=== PATIENT | male | born 1940 | race Caucasian/White ===

== ENCOUNTER 2016-06-06 09:45 | Emergency (ER) | payer MEDICARE ==
--- NOTE | 2016-06-06 11:00 | Emergency Department Record ---
History of Present Illness - General Chief Complaint: Dizziness Stated Complaint: DIZZINESS/HIGH BP/FAST HEART RATE Time Seen by Provider: 06/06/16 10:57 Source: Patient, Family Mode of Arrival: Ambulatory Limitations: No limitations - History of Present Illness Initial Comments: 75 yo male presents feeling lightheaded and dizzy for about a week. 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 He was taken off his Sotolol and started on Amiodarone, lasix, Carvedilol , Potassium. He has been on these medications for about a week. He has felt lightheaded, dizzy. Several days ago he passed out briefly. He noted at home that his HR has been over a one hundred and BP under a one hundred on several readings. MD Complaint: Dizziness, Lightheadedness Onset/Timin -: Week(s) Timing: Gradual onset History of Same: No History of Trauma: No Severity: Mild Improves With: Nothing Worsens With: Nothing Associated Symptoms: Denies other symptoms - [place] Coma Scale Eye Response: (4) Open spontaneously Motor Response: (6) Obeys commands Verbal Response: (5) Oriented [place] Total: 15 - Related Data Home Medications Medication Instructions Recorded Confirmed Last Taken Latanoprost 0.005% Opth Lisa 2.5 ml OP DAILY 10/25/15 06/06/16 11/25/15 [Xalatan] Midodrine HCl 2.5 mg PO BID 10/25/15 06/06/16 11/25/15 Multivit-Min/FA/Lycopene/Lut 1 each PO DAILY 10/25/15 06/06/16 11/25/15 [Centrum Silver Tablet] Nitroglycerin [Nitrostat] 0.4 mg SL ASDIR 10/25/15 06/06/16 11/25/15 Ranitidine HCl [Zantac] 150 mg PO BID 10/25/15 06/06/16 11/25/15 Rivaroxaban [Xarelto] 20 mg PO DAILY 10/25/15 06/06/16 11/25/15 [place] 450 mg PO BID 10/25/15 06/06/16 11/25/15 Simvastatin [Zocor] 10 mg PO DAILY 10/25/15 06/06/16 11/25/15 Temazepam 15 mg PO ASDIR PRN 10/25/15 06/06/16 11/24/15 Amiodarone HCl [Amiodarone HCl] 200 mg PO DAILY 06/06/16 06/06/16 Unknown Carvedilol [Carvedilol] 6.25 mg PO BID 06/06/16 06/06/16 Unknown Furosemide [Furosemide] 20 mg PO DAILY 06/06/16 06/06/16 Unknown Potassium Chloride [Klor-Con] 10 meq PO DAILY 06/06/16 06/06/16 Unknown Allergies Allergy/AdvReac Type Severity Reaction Status Date / Time dutasteride [From Avodart] Allergy SWELLING Verified 11/25/15 14:24 (GENERAL) lisinopril AdvReac DIZZINESS Verified 11/25/15 14:24 Travel Screening - Travel/Exposure Within Last 30 Days Have you traveled within the last 30 days?: No Review of Systems Constitutional: Reports: Weakness. Denies: Chills, Fever, Malaise Eyes: Denies: Eye discharge ENT: Denies: Congestion, Throat pain Respiratory: Denies: Cough, Dyspnea, Hemoptysis, Stridor, Wheezes Cardiovascular: Reports: Palpitations, Syncope. Denies: Chest pain Endocrine: Denies: Fatigue Gastrointestinal: Denies: Abdominal pain, Diarrhea, Nausea, Vomiting Genitourinary: Denies: Dysuria, Hematuria, Urgency Musculoskeletal: Denies: Arthralgia, Back pain, Joint swelling, Myalgia, Neck pain Skin: Denies: Bruising, Change in color Neurological: Denies: Headache, Numbness Psychiatric: Denies: Anxiety Hematological/Lymphatic: Denies: Blood Clots, Easy bleeding, Easy bruising, Swollen glands Past Medical History - SOCIAL HISTORY Smoking Status: Never smoker Alcohol Use: None Drug Use: None - RESPIRATORY Hx Respiratory Disorders: Yes Hx Sleep Apnea: Yes - CARDIOVASCULAR Hx Cardio Disorders: Yes Hx Abnormal EKG: Yes Hx Cardiac Cath: Yes Hx Chest Pain: Yes Hx CHF: Yes Hx Deep Vein Thrombosis: Yes Hx Edema: Yes Hx Heart Attack: Yes Hx Irregular Heartbeat: Yes Hx Pacemaker/Defib: Yes - NEURO Hx Neuro Disorders: No - GI Hx GI Disorders: Yes Hx of Polyps: Yes - Hx Genitourinary Disorders: Yes Hx Prostate Problems: Yes - ENDOCRINE Hx Endocrine Disorders: No - MUSCULOSKELETAL Hx Musculoskeletal Disorders: Yes Hx Arthritis: Yes - PSYCH Hx Psych Problems: No - HEMATOLOGY/ONCOLOGY Hx Hematology/Oncology Disorders: Yes Hx Cancer: Yes (skin) Family Medical History Any Significant Family History?: Yes Hx Cancer: Grandparents Hx HTN: Father, Mother, Grandparents *Stroke Comment: uncles Physical Exam - General General Appearance: Alert, Oriented x3, Cooperative, No acute distress Limitations: No limitations - Head Head exam: Normal inspection - Eye Eye exam: Normal appearance, PERRL. negative: Conjunctival injection - ENT ENT exam: Normal exam, Mucous membranes moist, Normal external ear exam, Normal orophraynx Ear exam: Normal external inspection. negative: External canal tenderness Nasal Exam: Normal inspection. negative: Discharge, Sinus tenderness Mouth exam: Normal external inspection, Tongue normal Teeth exam: Normal inspection. negative: Dental caries Throat exam: Normal inspection. negative: Tonsillar erythema, Tonsillar exudate - Neck Neck exam: Normal inspection, Full ROM. negative: Tenderness - Respiratory Respiratory exam: Normal lung sounds bilaterally. negative: Respiratory distress - Cardiovascular Cardiovascular Exam: Normal rhythm, Tachycardia Peripheral Pulses: 2+: Radial (R), Radial (L) - GI/Abdominal GI/Abdominal exam: Soft - Rectal Rectal exam: Deferred - exam: Deferred - Extremities Extremities exam: Normal inspection, Full ROM, Normal capillary refill. negative: Tenderness - Back Back exam: Reports: Normal inspection, Full ROM. Denies: Muscle spasm, Rash noted, Tenderness - Neurological Neurological exam: Alert, CN II-XII intact, Normal gait, Oriented X3 - Psychiatric Psychiatric exam: Normal affect, Normal mood - Skin Skin exam: Dry, Intact, Normal color, Warm Course Vital Signs 06/06/16 10:17 Temperature 97.5 F L Pulse Rate [ 109 H Pulse Ox Probe] Respiratory 14 Rate Blood Pressure 109/83 [Left Arm] Pulse Ox 96 - Reevaluation(s) Reevaluation #1: EKG 1008 sinus tachycardia, rate 108, PVC, RBBB, [place] rightward, ST changes CW bbbb. QTC 483 Comparison is from01/27/16 rate then was 70 06/06/16 10:58 Reevaluation #2: No acute changes on the BMP, Magnesium K is 4.2, Mg is 2.1 06/06/16 12:27 Reevaluation #3: The Troponin is negative 06/06/16 12:32 Reevaluation #4: I SW Dr Mensah We thoroughly reviewed his prior history and results We discussed his vitals including HR Dr Mensah recommends STOPPING the Lasix and Carvedilol He is to take the Amio 200mg BID His is to call the office prior to any changes and to report his symptoms update 06/06/16 12:48 06/06/16 12:52 06/06/16 13:04 Medical Decision Making - Lab Data Result diagrams: 06/06/16 10:50 06/06/16 10:50 Disposition Disposition: Discharge Clinical Impression: Palpitations Syncope Qualifiers: Syncope type: unspecified Qualified Code(s): R55 - Syncope and collapse Disposition: Home, Self-Care Condition: (1) Good Instructions: Dizziness (ED) Additional Instructions: Call Dr Mensah to be seen next week STOP your Lasix and Potassium STOP your Carvedilol Change your Amiodarone to 200mg twice daily Return immediately if you are worse, dizzy, pass out, pain or any concerns. Forms: Patient Portal Access Time of Disposition: 13:07
[2016-06-06 11:29] LABS: BASO % 0.3 % (0-6); EOS % 2.1 % (0-6); GRAN % 66.7 % (47-80); HEMATOCRIT 48.5 % (42.0-52.0); HEMOGLOBIN 15.8 gm/dl (14.0-18.0); MEAN CELL VOLUME 98.8 fl (81-97); MEAN CORPUSCULAR HEMOGLOBIN 32.2 pg (27-33); MEAN CORPUSCULAR HGB CONC 32.6 g/dl (32-36); MEAN PLATELET VOLUME 10.3 fl (7.4-10.4); MONO % 12.9 % (0-9); PLATELET COUNT 138 K/uL (130-400); RED BLOOD COUNT 4.91 M/uL (4.40-5.70); RED CELL DISTRIBUTION WIDTH 14.1 % (11.5-14.5); WHITE BLOOD COUNT W/O DIFF 6.3 K/uL (4.2-12.2)
[2016-06-06 11:45] LABS: INR 1.52; PARTIAL THROMBOPLASTIN TIME 42.5 SECONDS (24.5-39.1); PROTHROMBIN TIME (PATIENT) 17.2 SECONDS (9.5-12.1)
[2016-06-06 12:23] LABS: EST GLOMERULAR FILTRATION RATE > 60 ml/min
[2016-06-06 14:53] LABS: CKMB 1.1 ug/L (0-6)
[2016-06-06 14:55] LABS: TROPONIN I < 0.030 ng/mL (0.00-0.034)
[2016-06-06 14:56] LABS: GLUCOSE,RANDOM 108 mg/dL (70-110)
[2016-06-06 14:57] LABS: BLOOD UREA NITROGEN 22 mg/dL (9-20)
== END 2016-06-06 13:34 | disposition home or self-care (01) ==
LOC: ER 09:45
DX: R00.2 Palpitations (principal); R55 Syncope and collapse; I50.9 Heart failure, unspecified; I25.2 Old myocardial infarction
CPT/HCPCS: 80048; 82553; 83735; 84484; 85025; 85610; 85730; 93005; 93010; 99284

== ENCOUNTER 2016-06-22 11:54 | Day surgery (SDC) | payer MEDICARE ==
[2016-06-22] MEDS ORDERED: LIDOCAINE 2% MDV (20MG/ML) 20ML VIAL IV ONE (14:00)
[2016-06-22] MEDS ORDERED: PROPOFOL 10 MG/ML VIAL IV ONE (14:00)
--- NOTE | 2016-06-25 07:26 | Operative Note ---
DATE: 06/22/2016. PROCEDURE: Cardioversion. OPERATING PHYSICIAN: Domenica Mensah M.D. INDICATIONS: Atypical atrial flutter. DESCRIPTION OF PROCEDURE: Mr. Myles was brought into the Cardioversion Room in a fasting state. The defibrillation pads were applied in the anteroposterior position. Anesthesia was administered, and then a synchronized cardioversion was performed with 50 joules of biphasic energy. This was successful on the first attempt. IMPRESSION: Successful electrical cardioversion with 50 joules of biphasic energy. Domenica Mensah M.D. Date Time JOB NUMBER: [id number] MTDD
== END 2016-06-22 14:30 | disposition home or self-care (01) ==
LOC: SUR 11:54
PROVIDERS: ATTEND Internal Medicine
DX: I48.91 Unspecified atrial fibrillation (principal); Z79.01 Long term (current) use of anticoagulants; E78.00 Pure hypercholesterolemia, unspecified; I25.810 Atherosclerosis of coronary artery bypass graft(s) without angina pectoris
CPT/HCPCS: 93005

== ENCOUNTER 2016-06-23 09:39 | Emergency (ER) | payer MEDICARE ==
[2016-06-23] MEDS ORDERED: 0.9 % SODIUM CHLORIDE 1000ML 1,000 ML IV PRN (09:46)
--- NOTE | 2016-06-23 10:05 | Emergency Department Record ---
History of Present Illness - General Chief Complaint: Dizziness Stated Complaint: DIZZY/LIGHTHEADED Time Seen by Provider: 06/23/16 09:46 Source: Patient, RN notes reviewed Mode of Arrival: Ambulatory - History of Present Illness Initial Comments: patient state dizzy and lightheaded since his cardioversion yesterday at [facility] by Dr. Baron Mensah. Patient states the pictures are moving on the [place] and when he stands up he is dizzy and lightheaded. No chest pain and heart rate is 70 to 80. Patient has a pacer defibrillator and an EF of 30 % and history of CHF , CABG times 4 2003, Atrial fib 2011. Patient also nauseated MD Complaint: Dizziness Onset/Timin -: Days(s) Timing: Sudden onset Description: Lightheadedness, Nausea, Other History of Same: No History of Trauma: No Severity: Moderate Improves With: Nothing Worsens With: Nothing Associated Symptoms: Syncope, Weakness - [place] Coma Scale Eye Response: (4) Open spontaneously Motor Response: (6) Obeys commands Verbal Response: (5) Oriented [place] Total: 15 - Related Data Home Medications Medication Instructions Recorded Confirmed Last Taken Latanoprost 0.005% Opth Lisa 2.5 ml OP DAILY 10/25/15 06/23/16 06/22/16 [Xalatan] Midodrine HCl 2.5 mg PO BID 10/25/15 06/23/16 06/23/16 Multivit-Min/FA/Lycopene/Lut 1 each PO DAILY 10/25/15 06/23/16 06/22/16 [Centrum Silver Tablet] Nitroglycerin [Nitrostat] 0.4 mg SL ASDIR 10/25/15 06/23/16 06/22/16 Ranitidine HCl [Zantac] 150 mg PO BID 10/25/15 06/23/16 06/23/16 Rivaroxaban [Xarelto] 20 mg PO DAILY 10/25/15 06/23/16 06/22/16 Saw [place] 450 mg PO BID 10/25/15 06/23/16 06/23/16 Simvastatin [Zocor] 10 mg PO DAILY 10/25/15 06/23/16 06/22/16 Temazepam 15 mg PO ASDIR PRN 10/25/15 06/23/16 06/22/16 Amiodarone HCl [Amiodarone HCl] 200 mg PO DAILY 06/06/16 06/23/16 06/22/16 Carvedilol [Carvedilol] 6.25 mg PO BID 06/06/16 06/23/16 06/23/16 Furosemide [Furosemide] 20 mg PO DAILY 06/06/16 06/23/16 06/22/16 Potassium Chloride [Klor-Con] 10 meq PO DAILY 06/06/16 06/23/16 06/22/16 Previous Rx's Medication Instructions Recorded Amoxicillin [Amoxil] 500 mg PO TID #30 tab 06/23/16 Meclizine HCl [Antivert] 12.5 mg PO BID #20 tab 06/23/16 Allergies Allergy/AdvReac Type Severity Reaction Status Date / Time dutasteride [From Avodart] Allergy Intermediate SWELLING Verified 06/23/16 09:49 (GENERAL) zolpidem AdvReac Severe ALTERED Verified 06/23/16 09:49 MENTAL STATUS lisinopril AdvReac Intermediate DIZZINESS Verified 06/23/16 09:49 Travel Screening - Travel/Exposure Within Last 30 Days Have you traveled within the last 30 days?: No Review of Systems Reviewed: No additional complaints except as noted below Constitutional: Reports: As per HPI. Denies: Chills, Fever, Malaise, Night sweats, Weakness, Weight change Eyes: Reports: As per HPI. Denies: Eye discharge, Eye pain, Photophobia, Vision change ENT: Reports: As per HPI. Denies: Congestion, Dental pain, Ear pain, Epistaxis , Hearing loss, Throat pain Respiratory: Reports: As per HPI. Denies: Cough, Dyspnea, Hemoptysis, Stridor, Wheezes Cardiovascular: Reports: As per HPI. Denies: Arrhythmia, Chest pain, Dyspnea on exertion, Edema, Murmurs, Orthopnea, Palpitations, Paroxysmal nocturnal dyspnea, Rheumatic Fever, Syncope Endocrine: Reports: As per HPI. Denies: Fatigue, Heat or cold intolerance, Polydipsia, Polyuria Gastrointestinal: Reports: As per HPI. Denies: Abdominal pain, Constipation, Diarrhea, Hematemesis, Hematochezia, Melena, Nausea, Vomiting Genitourinary: Reports: As per HPI. Denies: Dysuria, Frequency, Hematuria, Incontinence, Retention, Testicular pain, Testicular mass, Urgency Musculoskeletal: Reports: As per HPI. Denies: Arthralgia, Back pain, Gout, Joint swelling, Myalgia, Neck pain Skin: Reports: As per HPI. Denies: Bruising, Change in color, Change in hair/ nails, Lesions, Pruritus, Rash Neurological: Reports: As per HPI. Denies: Abnormal gait, Confusion, Headache, Numbness, Paresthesias, Seizure, Tingling, Tremors, Vertigo, Weakness Psychiatric: Reports: As per HPI. Denies: Anxiety, Auditory hallucinations, Depression, Homicidal thoughts, Suicidal thoughts, Visual hallucinations Hematological/Lymphatic: Reports: As per HPI. Denies: Anemia, Blood Clots, Easy bleeding, Easy bruising, Swollen glands Past Medical History - SOCIAL HISTORY Smoking Status: Never smoker Alcohol Use: None Drug Use: None - RESPIRATORY Hx Respiratory Disorders: Yes Hx Pneumonia: Yes (not recent) Hx Sleep Apnea: Yes Hx of CPAP: No ("I couldn't wear it") - CARDIOVASCULAR Hx Cardio Disorders: Yes Hx Abnormal EKG: Yes (A fib) Hx Cardiac Cath: Yes (4 x) Hx Chest Pain: Yes ([place] 2002) Hx CHF: Yes (2003, 2008) Hx Edema: Yes (left leg pitting) Hx Heart Attack: Yes (2002) Hx Hypotension: Yes Hx Irregular Heartbeat: Yes Hx Pacemaker/Defib: Yes Hx Coronary Stent: Yes (2) - NEURO Hx Neuro Disorders: Yes Hx Dizziness: Yes (recently went to ED-also has had in past) Hx Headaches: Yes (all the time) - GI Hx GI Disorders: Yes Hx Nausea/Vomiting: Yes ("off & on") Hx of Polyps: Yes - Hx Genitourinary Disorders: Yes Hx Bladder Problem: Yes (urgency) Hx Prostate Problems: Yes (enlarged) - ENDOCRINE Hx Endocrine Disorders: No - MUSCULOSKELETAL Hx Musculoskeletal Disorders: Yes Hx Arthritis: Yes (RA) - PSYCH Hx Psych Problems: Yes Hx Behavior Problems: Yes (gets night terrors) Comment:: said "don't touch him if night terrors,he'll swing at you" - HEMATOLOGY/ONCOLOGY Hx Hematology/Oncology Disorders: Yes Hx Bruising: Yes (on blood thinner-xarelto) Hx Cancer: Yes (skin-base of neck,nose x 3,chest & low back) Family Medical History Any Significant Family History?: Yes Hx Cancer: Grandparents Hx HTN: Father, Mother, Grandparents *Stroke Comment: uncles Course Vital Signs 06/23/16 09:43 Temperature 98.1 F Pulse Rate 69 Respiratory 20 Rate Blood Pressure 142/88 Pulse Ox 97 - Reevaluation(s) Reevaluation #1: discussed case with Dr. Baron Mensah and will give him some fluids 06/23/16 12:17 Medical Decision Making - Data Complexity MDM Data: Labs Ordered and/or Reviewed, X-Ray Ordered and/or Reviewed ( cardiomegaly, left pleural effusion, atelectasis or pneumonitis, head CT neg) - Lab Data Result diagrams: 06/23/16 10:08 06/23/16 10:06 Disposition Clinical Impression: Bronchitis CHF (congestive heart failure) Qualifiers: Congestive heart failure type: systolic Congestive heart failure chronicity: chronic Qualified Code(s): I50.22 - Chronic systolic (congestive) heart failure Disposition: Home, Self-Care Condition: (1) Good Instructions: Acute Bronchitis (ED), Benign Paroxysmal Positional Vertigo (ED) Additional Instructions: followm up with family in 5 days Prescriptions: Amoxicillin [Amoxil] 500 mg PO TID #30 tab Meclizine HCl [Antivert] 12.5 mg PO BID #20 tab Forms: Patient Portal Access Time of Disposition: 12:24
[2016-06-23 10:17] LABS: HEMATOCRIT 47.8 % (42.0-52.0); HEMOGLOBIN 15.5 gm/dl (14.0-18.0); MEAN CELL VOLUME 99.4 fl (81-97); MEAN CORPUSCULAR HEMOGLOBIN 32.2 pg (27-33); MEAN CORPUSCULAR HGB CONC 32.4 g/dl (32-36); MEAN PLATELET VOLUME 10.6 fl (7.4-10.4); PLATELET COUNT 141 K/uL (130-400); RED BLOOD COUNT 4.81 M/uL (4.40-5.70); RED CELL DISTRIBUTION WIDTH 14.2 % (11.5-14.5); WHITE BLOOD COUNT W/O DIFF 4.9 K/uL (4.2-12.2)
[2016-06-23 10:29] LABS: ANION GAP 7.9 (7-16); BLOOD UREA NITROGEN 15 mg/dL (9-20); CARBON DIOXIDE 26.1 mmol/L (22-30); CREATININE 0.9 mg/dL (0.66-1.25); EST GLOMERULAR FILTRATION RATE > 60 ml/min; GLUCOSE,RANDOM 97 mg/dL (70-110)
[2016-06-23 10:32] LABS: PLATELET ESTIMATE NORMAL (NORMAL)
[2016-06-23 10:41] LABS: CKMB 0.7 ug/L (0-6)
[2016-06-23 10:42] LABS: TROPONIN I < 0.012 ng/mL (0.00-0.034)
[2016-06-23 11:28] LABS: URINE APPEARANCE CLEAR; URINE BILIRUBIN NEGATIVE (NEGATIVE); URINE BLOOD MODERATE (NEGATIVE); URINE COLOR YELLOW; URINE GLUCOSE (UA) NEGATIVE (NEGATIVE); URINE KETONE NEGATIVE (NEGATIVE); URINE LEUKOCYTE ESTERASE NEGATIVE (NEGATIVE); URINE NITRITE NEGATIVE (NEGATIVE); URINE PROTEIN NEGATIVE (NEGATIVE); URINE UROBILINOGEN 0.2 E.U./dL (0.20 - 1.00)
[2016-06-23 11:37] LABS: URINE BACTERIA NONE SEEN; URINE EPITHELIAL CELLS NONE SEEN (FEW); URINE WBC NONE SEEN (0-2/hpf)
[2016-06-23] MEDS ORDERED: CEFTRIAXONE SODIUM 1 GM in 0.9 % SODIUM CHLORIDE 100ML 100 ML IVPB ONE (11:46)
[2016-06-23] MEDS ORDERED: AZITHROMYCIN 500 MG TABLET PO ONE (11:46)
--- NOTE | 2016-06-25 09:28 | CT SCAN REPORT ---
EXAM: HEAD CT WITHOUT CONTRAST HISTORY: TRANSIENT ALTERATION OF AWARENESS, DIZZINESS, NAUSEA, WEAKNESS FOR TWENTY-FOUR HOURS. TECHNIQUE: Contiguous axial images from the cerebral convexities to the foramen magnum were obtained without contrast. Comparison: None. Hand dominance: Right. FINDINGS: Mild generalized atrophy of the brain. No acute intracranial hemorrhage, mass effect, or midline shift. Mild to moderate decreased attenuation in the subcortical and periventricular white matter of the cerebral hemispheres. No CT evidence of large acute territorial infarct. The ventricles , basal cisterns, and sulci are within normal limits. Moderate mucosal thickening in the maxillary sinuses. Also there is mucosal thickening in the ethmoid air cells and frontal sinuses. The osseous structures and soft tissues are unremarkable. IMPRESSION: 1. NO ACUTE INTRACRANIAL PROCESS. 2. GENERALIZED ATROPHY OF THE BRAIN WITH MILD TO MODERATE CHRONIC SMALL VESSEL ISCHEMIC CHANGE. 3. MUCOSAL THICKENING IN THE FRONTAL SINUSES, ETHMOID AIR CELLS, AND MAXILLARY SINUSES CONSISTENT WITH CHRONIC SINUSITIS. JOB NUMBER: [id number] MTDD
--- NOTE | 2016-06-25 09:37 | RADIOLOGY REPORT ---
EXAM: CHEST, TWO VIEWS HISTORY: ACUTE NONPRODUCTIVE COUGH, DIFFICULTY BREATHING, SHORTNESS OF BREATH, HISTORY OF PACEMAKER. TECHNIQUE: Two views of the chest were obtained. Comparison: None available. FINDINGS: Sternotomy wires are present. Left AICD is present. Pleural thickening lower left lateral chest wall consistent with layering pleural effusion. There may be mild left basilar air space disease. The right lung is clear. The cardiac silhouette is mildly enlarged. The diaphragm is unremarkable. Osteopenia. There is no overt pulmonary edema. IMPRESSION: LAYERING LEFT PLEURAL EFFUSION. QUESTIONABLE MINOR LEFT BASILAR AIR SPACE DISEASE COULD REFLECT ATELECTASIS OR PNEUMONITIS. JOB NUMBER: [id number] [facility]
== END 2016-06-23 12:51 | disposition home or self-care (01) ==
LOC: ER 09:39
DX: J20.9 Acute bronchitis, unspecified (principal); R42 Dizziness and giddiness; R11.0 Nausea; I50.22 Chronic systolic (congestive) heart failure; I48.91 Unspecified atrial fibrillation; I25.2 Old myocardial infarction; Z95.810 Presence of automatic (implantable) cardiac defibrillator; Z79.01 Long term (current) use of anticoagulants; Z95.1 Presence of aortocoronary bypass graft
CPT/HCPCS: 70450; 71020; 80048; 81001; 82553; 84484; 85027; 85730; 93005; 93010; 96361; 96365; 99284

== ENCOUNTER 2017-01-20 08:20 | Day surgery (SDC) | payer MEDICARE ==
[~2017-01-20 08:20] MED LIST: CIPROFLOXACIN HCL 0.0015 GM, PHENYLEPHRINE HCL 0.05 GM, KETOROLAC TROMETHAMINE 0.000625 GM MC ONE
[2017-01-20] MEDS ORDERED: PROPOFOL 10 MG/ML VIAL IV ONE (12:53)
[2017-01-20] MEDS ORDERED: LIDOCAINE 2% MDV (20MG/ML) 20ML VIAL IV ONE ×2 (12:53→14:00)
[2017-01-20] MEDS ORDERED: NEOMYCIN/POLY./DEXAM OPTH OINT OPTH ONE (14:00)
[2017-01-20] MEDS ORDERED: TETRACAINE HCL 0.5% 15 ML OPTH BTL OPTH ONE (14:00)
[2017-01-20] MEDS ORDERED: EPINEPHRINE 1 MG/ML AMPUL SQ ONE (14:00)
--- NOTE | 2017-01-21 07:48 | OP NOTE CHAMES ---
DATE OF PROCEDURE: 01/20/2017. PREOPERATIVE DIAGNOSIS: Nuclear sclerotic cataract, left eye. POSTOPERATIVE DIAGNOSIS: Nuclear sclerotic cataract, left eye. OPERATION: Phacoemulsification of cataractous lens with implantation of intraocular lens. LENS IMPLANT USED: [place] Model PCB00 + 22l.0 diopters. COMPLICATIONS: None. PROCEDURE IN DETAIL: Following a retrobulbar and facial block, the patient was prepped and draped in the usual fashion for eye surgery. A lid speculum was placed in the left eye after which a 2.4 mm tunnel wound was placed at the temporal limbus and dissected into clear cornea. A paracentesis was placed at 2 oclock hours to the left and right of the initial incision and the chamber deepened with Viscoelastic. The keratome was then used to enter the anterior chamber after which the continuous circular capsulorrhexis was accomplished without difficulty using a bent needle and a Utrata forceps. Hydrodissection and hydrodelineation of the lens was performed after which the nucleus of the lens was removed using the Phaco handpiece in the [id number] technique. The residual cortical material was irrigated and aspirated from the eye after which the bag and chamber were re-examined. The bag was re-inflated with Viscoelastic and the intraocular lens injected into the capsular bag where it centered well. The Viscoelastic was then copiously irrigated and aspirated from the eye after which the temporal tunnel wound and paracentesis were hydrated and the wounds were examined. They were noted to be watertight. The lid speculum was removed from the eye and the eye patched and shielded. The patient was transferred to the recovery room in satisfactory condition and given an appointment to be reexamined in the clinic later today or as directed by Dr. Andersen. Kyler Andersen M.D. Date & Time JOB NUMBER: [id number] MTDD
== END 2017-01-20 10:45 | disposition home or self-care (01) ==
LOC: SUR 08:20
PROVIDERS: ATTEND Ophthalmology
DX: H25.12 Age-related nuclear cataract, left eye (principal); I48.91 Unspecified atrial fibrillation; Z79.01 Long term (current) use of anticoagulants; I25.810 Atherosclerosis of coronary artery bypass graft(s) without angina pectoris; Z95.810 Presence of automatic (implantable) cardiac defibrillator
CPT/HCPCS: J0171

== ENCOUNTER 2017-02-03 07:32 | Day surgery (SDC) | payer MEDICARE ==
[2017-02-03] MEDS ORDERED: LIDOCAINE 2% MDV (20MG/ML) 20ML VIAL IV ONE ×2 (07:33)
[2017-02-03] MEDS ORDERED: NEOMYCIN/POLY./DEXAM OPTH OINT OPTH ONE (07:33)
[2017-02-03] MEDS ORDERED: TETRACAINE HCL 0.5% 15 ML OPTH BTL OPTH ONE (07:33)
[2017-02-03] MEDS ORDERED: EPINEPHRINE 1 MG/ML AMPUL SQ ONE (07:33)
[2017-02-03] MEDS ORDERED: PROPOFOL 10 MG/ML VIAL IV ONE (07:33)
[2017-02-03] MEDS ORDERED: CIPROFLOXACIN HCL 0.0015 GM, PHENYLEPHRINE HCL 0.05 GM, KETOROLAC TROMETHAMINE 0.000625 GM MC ONE ×5 (11:30)
--- NOTE | 2017-02-03 14:28 | Operative Note ---
DATE OF PROCEDURE: 02/03/17. PREOPERATIVE DIAGNOSIS: Nuclear sclerotic cataract, right eye. POSTOPERATIVE DIAGNOSIS: Nuclear sclerotic cataract, right eye. OPERATION: Phacoemulsification of cataractous lens with implantation of intraocular lens. LENS IMPLANT USED: [place] Model PCB00 + 22.5 diopters. COMPLICATIONS: None. PROCEDURE IN DETAIL: Following a retrobulbar and facial block, the patient was prepped and draped in the usual fashion for eye surgery. A lid speculum was placed in the right eye after which a 2.4 mm tunnel wound was placed at the temporal limbus and dissected into clear cornea. A paracentesis was placed at 2 o'clock hours to the left and right of the initial incision and the chamber deepened with Viscoelastic. The keratome was then used to enter the anterior chamber after which the continuous circular capsulorrhexis was accomplished without difficulty using a bent needle and a Utrata forceps. Hydrodissection and hydrodelineation of the lens was performed after which the nucleus of the lens was removed using the Phaco handpiece in the [id number] technique. The residual cortical material was irrigated and aspirated from the eye after which the bag and chamber were re-examined. The bag was re-inflated with Viscoelastic and the intraocular lens injected into the capsular bag where it centered well. The Viscoelastic was then copiously irrigated and aspirated from the eye after which the temporal tunnel wound and paracentesis were hydrated and the wounds were examined. They were noted to be watertight. The lid speculum was removed from the eye and the eye patched and shielded. The patient was transferred to the recovery room in satisfactory condition and given an appointment to be reexamined in the clinic later today or as directed by Dr. Andersen. JOB NUMBER: [id number] [facility]
== END 2017-02-03 10:35 | disposition home or self-care (01) ==
LOC: SUR 07:32
PROVIDERS: ATTEND Ophthalmology
DX: H25.11 Age-related nuclear cataract, right eye (principal); I51.9 Heart disease, unspecified; Z79.01 Long term (current) use of anticoagulants; Z79.899 Other long term (current) drug therapy; E78.00 Pure hypercholesterolemia, unspecified; H40.9 Unspecified glaucoma
CPT/HCPCS: J0171

== ENCOUNTER 2017-07-18 08:36 | Observation (INO) | payer MEDICARE ==
--- NOTE | 2017-07-18 08:53 | Emergency Department Record ---
History of Present Illness - General Chief Complaint: Dizziness Stated Complaint: DIZZINESS/CARROL Time Seen by Provider: 07/18/17 08:41 Source: Patient Mode of Arrival: Ambulatory Limitations: No limitations - History of Present Illness Initial Comments: 76 yo male presents with 2 weeks of not feeling well. He states he is feeling dizzy with walking over the last two weeks. He is improved at rest but is dizzy with walking around. No vision changes, focal weakness, no confusion. He has also felt short of breath. No significant cough. No chest pain. He has had increased leg swelling. He has a history of CAD, CABG, Pacemaker. He has a history of CHF. His PCP is Dr Montes. Envelope Folding Machine Adjuster is Dr Mensah. the patient reports he has not been on his Lasix for about one year. MD Complaint: Dizziness, Other (Shortness of breath) -: Week(s) (2) Timing: Gradual onset Description: Difficulty walking History of Same: Yes History of Trauma: No Severity: Moderate Improves With: Remaining still, Rest Worsens With: Movement, Other (Walking) Associated Symptoms: Shortness of breath - Ramandeep Coma Scale Eye Response: (4) Open spontaneously Motor Response: (6) Obeys commands Verbal Response: (5) Oriented Ramandeep Total: 15 - Symptoms of Stroke Symptoms of stroke: Dizziness - Related Data Allergies Allergy/AdvReac Type Severity Reaction Status Date / Time dutasteride [From Avodart] Allergy Intermediate SWELLING Verified 07/18/17 08:45 (GENERAL) zolpidem AdvReac Severe ALTERED Verified 07/18/17 08:45 MENTAL STATUS lisinopril AdvReac Intermediate DIZZINESS Verified 07/18/17 08:45 Review of Systems Constitutional: Denies: Chills, Fever, Malaise, Weakness Eyes: Denies: Eye discharge ENT: Denies: Congestion, Ear pain, Epistaxis, Throat pain Respiratory: Reports: Dyspnea. Denies: Cough, Hemoptysis, Stridor, Wheezes Cardiovascular: Reports: Dyspnea on exertion, Edema. Denies: Chest pain, Palpitations, Syncope Endocrine: Reports: Fatigue. Denies: Polydipsia, Polyuria Gastrointestinal: Reports: Diarrhea. Denies: Abdominal pain, Nausea, Vomiting Genitourinary: Denies: Dysuria, Frequency, Hematuria Musculoskeletal: Denies: Arthralgia, Back pain, Joint swelling, Myalgia, Neck pain Skin: Denies: Bruising, Change in color, Rash Neurological: Reports: Abnormal gait, Headache, Vertigo. Denies: Confusion, Numbness, Paresthesias, Seizure, Tingling, Tremors Psychiatric: Denies: Anxiety Hematological/Lymphatic: Denies: Blood Clots, Easy bleeding, Easy bruising, Swollen glands Past Medical History - SOCIAL HISTORY Smoking Status: Never smoker - RESPIRATORY Hx Respiratory Disorders: Yes Hx Pneumonia: Yes (not recent) Hx Sleep Apnea: Yes Hx of CPAP: No ("I couldn't wear it") - CARDIOVASCULAR Hx Cardio Disorders: Yes Hx Abnormal EKG: Yes (A fib) Hx Cardiac Cath: Yes (4 x) Hx Chest Pain: Yes (CA 2002) Hx CHF: Yes (2003, 2008) Hx Edema: Yes (left leg pitting) Hx Heart Attack: Yes (2002) Hx Hypotension: Yes Hx Irregular Heartbeat: Yes Hx Pacemaker/Defib: Yes Hx Coronary Stent: Yes (2) - NEURO Hx Neuro Disorders: Yes Hx Dizziness: Yes (HAS NOT BOTHERED HIM FOR SOMETIME) Hx Headaches: Yes (all the time) - GI Hx GI Disorders: Yes Hx Nausea/Vomiting: Yes ("off & on") Hx of Polyps: Yes - Hx Genitourinary Disorders: Yes Hx Bladder Problem: Yes (urgency) Hx Prostate Problems: Yes (enlarged) - ENDOCRINE Hx Endocrine Disorders: No - MUSCULOSKELETAL Hx Musculoskeletal Disorders: Yes Hx Arthritis: Yes (RA) - PSYCH Hx Psych Problems: Yes Hx Behavior Problems: Yes (gets night terrors) Comment:: said "don't touch him if night terrors,he'll swing at you" - HEMATOLOGY/ONCOLOGY Hx Hematology/Oncology Disorders: Yes Hx Bruising: Yes (on blood thinner-xarelto) Hx Cancer: Yes (skin-base of neck,nose x 3,chest & low back) Family Medical History Hx Cancer: Grandparents Hx HTN: Father, Mother, Grandparents *Stroke Comment: uncles Physical Exam - General General Appearance: Alert, Oriented x3, Cooperative, No acute distress Limitations: No limitations - Head Head exam: Atraumatic, Normocephalic, Normal inspection - Eye Eye exam: Normal appearance, PERRL, EOMI. negative: Conjunctival injection, Periorbital swelling, Scleral icterus - ENT ENT exam: Normal exam, Mucous membranes moist, Normal orophraynx Ear exam: Normal external inspection Nasal Exam: Normal inspection Mouth exam: Normal external inspection Teeth exam: Normal inspection Throat exam: Normal inspection - Neck Neck exam: Normal inspection, Full ROM. negative: Tenderness - Respiratory Respiratory exam: Decreased breath sounds. negative: Accessory muscle use, Prolonged expiratory - Cardiovascular Cardiovascular Exam: Regular rate, Normal rhythm, Normal heart sounds Peripheral Pulses: 2+: Radial (R), Radial (L) - GI/Abdominal GI/Abdominal exam: Soft. negative: Tenderness - Rectal Rectal exam: Deferred - exam: Deferred - Extremities Extremities exam: Full ROM, Pedal edema (bilateral +2). negative: Calf tenderness, Tenderness - Back Back exam: Reports: Normal inspection, Full ROM. Denies: CVA tenderness (R), CVA tenderness (L), Muscle spasm, Rash noted, Tenderness - Neurological Neurological exam: Alert, Normal gait, Oriented X3, Reflexes normal - Psychiatric Psychiatric exam: Normal affect, Normal mood - Skin Skin exam: Dry, Intact, Normal color, Warm Course - Reevaluation(s) Reevaluation #1: EKG 0841 regular rhythm, wide complex consistent with RBBB, NS ST changes, [id number]. likely sinus 07/18/17 08:55 07/18/17 09:19 The CBC was reviewed. No acute changes The CMP was reviewed. No acute changes The Troponin is negative 07/18/17 09:38 The BNP is elevated at 1234 07/18/17 09:55 HCT was reviewed. No acute process CXR reviewed. Blunted right and left CPA. No infiltrates. 07/18/17 10:02 HR on monitor varies from 90-120. Likely Afib on monitor He is anticoagulated on Xarelto Given his CHF, afib I recommend admission, ECHO,Carotids, diuretic, consult cardiology. 07/18/17 10:07 I discussed the case Janny Waters of the admission service Medical Decision Making - Lab Data Result diagrams: 07/18/17 08:47 07/18/17 08:47 Disposition Disposition: Admit Clinical Impression: Dizziness, Atrial fibrillation CHF (congestive heart failure) Qualifiers: Heart failure type: unspecified Heart failure chronicity: unspecified Qualified Code(s): I50.9 - Heart failure, unspecified Disposition: Still a Patient at [facility] Decision to Admit: Admit from ER Decision to Admit Date: 07/18/17 Decision to Admit Time: 10:05 Condition: (2) Stable Forms: Patient Portal Access Time of Disposition: 10:05 Quality - Quality Measures Quality Measures: N/A - Blood Pressure Screening Does Patient Have Any of the Following: Active Dx of HTN Blood Pressure Classification: Hypertensive Reading Systolic Measurement: 132 Diastolic Measurement: 97 Screening for High Blood Pressure: Patient Exclusion, Hx of HTN [[id number]]
[2017-07-18 08:59] LABS: BASO % 0.3 % (0-6); EOS % 1.1 % (0-6); GRAN % 70.8 % (47-80); HEMATOCRIT 44.3 % (42.0-52.0); HEMOGLOBIN 14.3 gm/dl (14.0-18.0); LYMPH % 15.5 % (16-45); MEAN CELL VOLUME 100.7 fl (81-97); MEAN CORPUSCULAR HEMOGLOBIN 32.5 pg (27-33); MEAN CORPUSCULAR HGB CONC 32.3 g/dl (32-36); MEAN PLATELET VOLUME 10.5 fl (7.4-10.4); MONO % 12.3 % (0-9); PLATELET COUNT 131 K/uL (130-400); RED CELL DISTRIBUTION WIDTH 14.9 % (11.5-14.5)
[2017-07-18 09:08] LABS: BLOOD UREA NITROGEN 25 mg/dL (8-23); CREATININE 1.1 mg/dL (0.7-1.2); EST GLOMERULAR FILTRATION RATE > 60 mL/min
[2017-07-18 09:09] LABS: TOTAL PROTEIN 7.2 g/dL (6.6-8.7)
[2017-07-18 09:11] LABS: GLUCOSE,RANDOM 94 mg/dL (74-109); INR 1.6; PARTIAL THROMBOPLASTIN TIME 45.3 SECONDS (24.5-39.1); PROTHROMBIN TIME (PATIENT) 17.8 SECONDS (9.5-12.1)
[2017-07-18 09:13] LABS: ALT/SGPT 23 U/L (<41); AST/SGOT 29 U/L (10.0-50.0)
[2017-07-18 09:14] LABS: ALB/GLOB RATIO 1.4 (1.1-1.8); ALBUMIN 4.2 g/dL (4.0-5.0); ALKALINE PHOSPHATASE 59 U/L (40-129)
[2017-07-18 09:25] LABS: THYROID STIMULATING HORMONE 4.44 uIU/mL (0.270-4.20)
[2017-07-18] MEDS ORDERED: FUROSEMIDE IV 20MG/2ML VIAL IVP ONE (09:36)
[2017-07-18] MEDS ORDERED: TEMAZEPAM 15 MG CAPSULE PO PRN (10:11)
--- NOTE | 2017-07-18 11:47 | History & Physical ---
History of Present Illness - Date of Service Date of Service for History & Physical: 07/18/17 - History of Present Illness Admitting Diagnosis: CHF, dizziness History of Present Illness: 76 yo male presents for CHF exacerbation and dizziness. PMH CABG, PPM/ICD, HTN, Afib (chronic) and terminal clerk anticoagulation. Off lasix for several years, unknown. Pt has known CHF, was taken off Lasix "several years ago" but does not now why. Pt was seen by PCP within the week but no med changes at that time. ED -Given Lasix 20mg IVP, 820mL out put -BP 132/97, HR 102, RR 15, 98% RA, temp 97.6F -CBC, 7, Hgb 14.3, Hct 44.3, Plt 131,NA 143, K 3.9, Cl 104, CO2 27, BUN 25, creatinine 1.1, glucose 94, BNP 1234, TSH 4.44 -CXR negative for acute process -CT head- negative for acute process -admitted CHF, dizziness, cardiology consult in AM 07/18/17 Pt in no acute distress, ambulates without assistance. No noted SOB but pt reports increased SOB over the past several days. +3 pitting edema to KHURRAM knees, pulses +2 DP/PT Lungs clear to auscultation K 40 Meq PO given at this time, mag serum ordered to be added to ER labs. POC IV lasix BID, K 20 meq BID continue on tele obtaining EKG Travel Screening - Travel/Exposure Within Last 30 Days Have you traveled within the last 30 days?: No - Travel/Exposure Within Last Year Have you traveled outside the [place] in the last year?: No - Additonal Travel Details Have you been exposed to anyone with a communicable illness?: No - Travel Symptoms Symptom Screening: None Review of Systems Constitutional: Denies: Chills, Fever, Malaise, Weakness Eyes: Denies: Eye discharge ENT: Denies: Congestion, Ear pain, Epistaxis, Throat pain Respiratory: Reports: Dyspnea. Denies: Cough, Hemoptysis, Stridor, Wheezes Cardiovascular: Reports: Dyspnea on exertion, Edema. Denies: Chest pain, Palpitations, Syncope Endocrine: Reports: Fatigue. Denies: Polydipsia, Polyuria Gastrointestinal: Reports: Diarrhea. Denies: Abdominal pain, Nausea, Vomiting Genitourinary: Denies: Dysuria, Frequency, Hematuria Musculoskeletal: Denies: Arthralgia, Back pain, Joint swelling, Myalgia, Neck pain Skin: Denies: Bruising, Change in color, Rash Neurological: Reports: Abnormal gait, Headache, Vertigo. Denies: Confusion, Numbness, Paresthesias, Seizure, Tingling, Tremors Psychiatric: Denies: Anxiety Hematological/Lymphatic: Denies: Blood Clots, Easy bleeding, Easy bruising, Swollen glands Past Medical History - SOCIAL HISTORY Smoking Status: Former smoker Alcohol Use: Rare Drug Use: None - RESPIRATORY Hx Respiratory Disorders: Yes Hx Pneumonia: Yes (not recent) Hx Sleep Apnea: Yes Hx of CPAP: No ("I couldn't wear it") - CARDIOVASCULAR Hx Cardio Disorders: Yes Hx Abnormal EKG: Yes (A fib) Hx Cardiac Cath: Yes (4 x) Hx Chest Pain: Yes (SC 2002) Hx CHF: Yes (2003, 2008) Hx Edema: Yes (left leg pitting) Hx Heart Attack: Yes (2002) Hx Hypotension: Yes Hx Irregular Heartbeat: Yes Hx Pacemaker/Defib: Yes Hx Coronary Stent: Yes (2) - NEURO Hx Neuro Disorders: Yes Hx Dizziness: Yes (HAS NOT BOTHERED HIM FOR SOMETIME) Hx Headaches: Yes (all the time) - GI Hx GI Disorders: Yes Hx Nausea/Vomiting: Yes ("off & on") Hx of Polyps: Yes (1 small polyp removed 2000 & 3 removed in 1992) - Hx Genitourinary Disorders: Yes Hx Bladder Problem: Yes (urgency) Hx Prostate Problems: Yes (enlarged) - ENDOCRINE Hx Endocrine Disorders: No Comment:: Dr Montes advised not to take thyroid meds anymore - MUSCULOSKELETAL Hx Musculoskeletal Disorders: Yes Hx Arthritis: Yes (RA) - PSYCH Hx Psych Problems: Yes Hx Behavior Problems: Yes (gets night terrors) Comment:: said "don't touch him if night terrors,he'll swing at you" - HEMATOLOGY/ONCOLOGY Hx Hematology/Oncology Disorders: Yes Hx Bruising: Yes (on blood thinner-xarelto) Hx Cancer: Yes (skin-base of neck,nose x 3,chest & low back) Family Medical History Any Significant Family History?: Yes Hx Cancer: Grandparents Hx HTN: Father, Mother, Grandparents *Stroke Comment: uncles H&P Meds/Allergies - Allergies Allergies: Allergies Allergy/AdvReac Type Severity Reaction Status Date / Time dutasteride [From Avodart] Allergy Intermediate SWELLING Verified 07/18/17 08:45 (GENERAL) zolpidem AdvReac Severe ALTERED Verified 07/18/17 08:45 MENTAL STATUS lisinopril AdvReac Intermediate DIZZINESS Verified 07/18/17 08:45 - Active Medications Active Medications: Current Medications Amiodarone HCl (Pacerone) 200 mg PO DAILY [facility] Latanoprost (Xalatan) drop OPTH DAILY [facility] Non-Formulary Medication (Carvedilol [Carvedilol]) 6.25 mg PO BID [facility] Non-Formulary Medication (Midodrine Hcl [Midodrine Hcl]) 2.5 mg PO BID [facility]ERT Non-Formulary Medication (Multivit-Min/Fa/Lycopen/Lutein [Centrum Silver Tablet] ) 1 each PO DAILY [facility] Ranitidine HCl (Zantac) 150 mg PO BID [facility] Rivaroxaban (Xarelto) 20 mg PO DAILY [facility] Simvastatin (Zocor) 10 mg PO DAILY [facility] Temazepam (Restoril) 15 mg PO ASDIR PRN PRN Reason: SLEEP Physical Exam - Vital Signs Vital Signs: Vital Signs - Last 24 Hrs Temp Pulse Resp BP Pulse Ox 07/18/17 11:34 97.7 F 100 H 16 125/85 97 - General General Appearance: Alert, Oriented x3, Cooperative, No acute distress Limitations: No limitations - Head Head exam: Atraumatic, Normocephalic, Normal inspection - Eye Eye exam: Normal appearance, PERRL, EOMI. negative: Conjunctival injection, Periorbital swelling, Scleral icterus - ENT ENT exam: Normal exam, Mucous membranes moist, Normal orophraynx Ear exam: Normal external inspection Nasal Exam: Normal inspection Mouth exam: Normal external inspection Teeth exam: Normal inspection Throat exam: Normal inspection - Neck Neck exam: Normal inspection, Full ROM. negative: Tenderness - Respiratory Respiratory exam: Decreased breath sounds. negative: Accessory muscle use, Prolonged expiratory - Cardiovascular Cardiovascular Exam: Regular rate, Normal rhythm, Normal heart sounds Peripheral Pulses: 2+: Radial (R), Radial (L), Dorsalis Pedis (R), Dorsalis Pedis (L) - GI/Abdominal GI/Abdominal exam: Soft, Normal bowel sounds. negative: Tenderness - Rectal Rectal exam: Deferred - exam: Deferred - Extremities Extremities exam: Full ROM, Pedal edema (bilateral +3). negative: Calf tenderness, Tenderness - Back Back exam: Reports: Normal inspection, Full ROM. Denies: CVA tenderness (R), CVA tenderness (L), Muscle spasm, Rash noted, Tenderness - Neurological Neurological exam: Alert, Normal gait, Oriented X3, Reflexes normal - Psychiatric Psychiatric exam: Normal affect, Normal mood - Skin Skin exam: Dry, Intact, Normal color, Warm Results - Labs Result Diagrams: 07/18/17 08:47 07/18/17 08:47 - Imaging and Cardiology Chest x-ray Status: Report reviewed (audio clip reviewd, No acute process) CT scan - head Status: Report reviewed (audio clip reviewed, no acute process) VTE H&P Assessment - Risk for VTE Risk for VTE: Yes Risk Level: Moderate Risk Assessment Date: 07/18/17 Risk Assessment Time: 12:56 VTE Orders Placed or Will Be Placed: No VTE Reason for No Prophylaxis: Contraindicated ([facility] anticoagulation use- current) Plan - Detailed Diagnosis and Plan (1) CHF (congestive heart failure) Current Visit: Yes Status: Acute Qualifiers: Heart failure type: unspecified Heart failure chronicity: acute on chronic Qualified Code(s): I50.9 - Heart failure, unspecified Base Code: I50.9 - HEART FAILURE, UNSPECIFIED Priority: High Onset Date: ~ Comment: 07/18/17 -off lasix "years" with known CHF -+3 pitting edema BLE to the knees -K 3.9 (given lasix in ED), supped 40 Meq PO NOW -continue IVP lasix 20mg BID -K 20 Meq BID -monitor lytes (2) Atrial fibrillation Current Visit: Yes Status: Chronic Qualifiers: Atrial fibrillation type: chronic Qualified Code(s): I48.2 - Chronic atrial fibrillation Base Code: I48.91 - UNSPECIFIED ATRIAL FIBRILLATION Onset Date: ~07/18/17 Comment: 07/18/17 -chronic Afib -PPM/ICD -terminal clerk anti-coagulation use (3) Dizziness Current Visit: Yes Status: Acute Base Code: R42 - DIZZINESS AND GIDDINESS Onset Date: ~07/18/17 Comment: 07/18/17 -CT head negative for acute process - khurram carotid US- awaiting results (4) Full code status Current Visit: Yes Status: Acute Base Code: Z78.9 - OTHER SPECIFIED HEALTH STATUS Onset Date: ~07/18/17 Comment: 07/18/17 - continue full code status (5) DVT prophylaxis Current Visit: Yes Status: Acute Base Code: [id number] - Comment: 07/18/17 -continue anti-coagulation with Xareltol
[2017-07-18] MEDS ORDERED: POTASSIUM CHLORIDE 20 MEQ TABLET PO ONE (12:21)
[2017-07-18] MEDS ORDERED: MAGNESIUM OXIDE 400 MG TABLET PO ONE (14:18)
--- NOTE | 2017-07-18 15:03 | RADIOLOGY REPORT ---
EXAM: CHEST, TWO VIEWS HISTORY: SHORTNESS OF BREATH WITH LEG SWELLING. TECHNIQUE: PA and lateral views of the chest were obtained. Comparison: Two view chest 03/08/17. FINDINGS: Stable cardiomegaly. Postop sternotomy and ICD in place as before. Persistent pleural opacity left base laterally appearing essentially unchanged. Slightly greater blunting of the right lateral costophrenic angle today, but no appreciable blunting of the posterior costophrenic angle. There is probably some pericardial calcification present, also present previously. No definite acute infiltrate seen. IMPRESSION: 1. POSTOP CHANGES BEFORE WITH STERNOTOMY AND ICD IN PLACE. 2. PERSISTENT PLEURAL OPACITY LEFT BASE LATERALLY BEFORE WITH SLIGHTLY GREATER BLUNTING OF THE RIGHT LATERAL COSTOPHRENIC ANGLE TODAY BY FLUID OR THICKENED PLEURA. 3. PERICARDIAL CALCIFICATION BEFORE. 4. NO ACUTE INFILTRATE EVIDENT. JOB NUMBER: [id number] MTDD
--- NOTE | 2017-07-18 15:08 | CT SCAN REPORT ---
EXAM: EMERGENCY HEAD CT HISTORY: SHORTNESS OF BREATH, FELL YESTERDAY, VERTIGO. TECHNIQUE: Axial CT scan of the head was performed without IV contrast. Comparison: Head CT 06/23/16. Encounter: Initial. FINDINGS: No acute intracranial hemorrhage identified. No focal mass effect or midline shift evident. Generalized atrophy with chronic appearing deep white matter changes as before, nonspecific, but likely representing some chronic small vessel deep white matter ischemic disease. No definite acute infarct or intracranial mass lesion seen. There is a cyst or polyp posteriorly in the left ethmoid sinus, but there has been clearing of the previously seen extensive ethmoid sinus opacification bilaterally as well clearing of previously seen bilateral maxillary and frontal sinus opacification. IMPRESSION: 1. NO DEFINITE ACUTE INTRACRANIAL HEMORRHAGE OR FOCAL MASS EFFECT IDENTIFIED. 2. GENERALIZED ATROPHY WITH CHRONIC APPEARING DEEP WHITE MATTER CHANGES BEFORE. 3. CONSIDERABLE CLEARING OF PREVIOUSLY SEEN PARANASAL SINUS OPACIFICATION ALTHOUGH STILL A RESIDUAL CYST OR POLYP POSTERIORLY IN THE LEFT ETHMOID SINUS ABOUT 14 MM IN SIZE. JOB NUMBER: [id number] MTDD
[2017-07-18] MEDS ORDERED: SIMVASTATIN 10MG TABLET PO SCH ×2 (17:00→22:00)
[2017-07-18] MEDS: FUROSEMIDE IV 20MG/2ML VIAL IVP SCH (19:53)
[2017-07-18] MEDS ORDERED: CARVEDILOL 6.25 MG PO SCH (22:00)
[2017-07-18] MEDS ORDERED: MIDODRINE HCL 2.5 MG PO SCH (22:00)
[2017-07-18] MEDS ORDERED: RANITIDINE HCL 150 MG TABLET PO SCH (22:00)
[2017-07-18] MEDS ORDERED: LATANOPROST 0.005% OPTH SOLUTION 2.5ML BOTTLE OPTH SCH (22:00)
[2017-07-18] MEDS: POTASSIUM CHLORIDE 20 MEQ TABLET PO SCH (22:05)
[2017-07-19 07:00] LABS: BLOOD UREA NITROGEN 22 mg/dL (8-23); EST GLOMERULAR FILTRATION RATE > 60 mL/min; GLUCOSE,RANDOM 93 mg/dL (74-109)
--- NOTE | 2017-07-19 07:38 | US CAROTID DOPPLER REPORT ---
EXAM: EMERGENCY BILATERAL CAROTID DOPPLER ULTRASOUND HISTORY: ABNORMAL WAVEFORMS, DIZZINESS. TECHNIQUE: Womack scale, color Doppler and duplex Doppler evaluation of the bilateral carotid arteries was performed. Comparison: None. FINDINGS: 3 Vessel Right Peak Systolic/ End Diastolic Velocities Left Peak Systolic/ End Diastolic Velocities Proximal Common Carotid Artery 39.5 cm/s /7.6 cm/s 46.0 cm/s /13.1 cm/s Mid Common Carotid Artery 52.6 cm/s /9.8 cm/s 47.1 cm/s /10.9 cm/s Distal Common Carotid Artery 39.0 cm/s /3.8 cm/s 52.6 cm/s /14.2 cm/s Proximal Internal Carotid Artery 84.4 cm/s /21.0 cm/s 61.4 cm/s /19.7 cm/s Mid Internal Carotid Artery 50.7 cm/s /9.3 cm/s 43.8 cm/s /18.6 cm/s Distal Internal Carotid Artery 31.3 cm/s /13.2 cm/s 47.1 cm/s /20.8 cm/s Carotid Bulb 61.1 cm/s /19.7 cm/s 64.5 cm/s /13.1 cm/s Proximal External Carotid Artery 75.3 cm/s /8.8 cm/s 84.5 cm/s /10.9 cm/s d d d Right Flow Left Flow Vertebral Artery Antegrade Antegrade The peak systolic velocity ratio on the right is 2.2. The peak systolic velocity ratio on the left is 1.2. On the images themselves, there is moderate calcified plaque at the right carotid bulb. Some extends into the right ECA and also into the right ICA. On the left there is also some calcified plaque in the bulb extending into the left ECA and ICA. IMPRESSION: 1. ON THE RIGHT, THERE IS NO APPRECIABLE ELEVATION OF THE PEAK SYSTOLIC OR END DIASTOLIC VELOCITIES, BUT THERE IS PROMINENT CALCIFICATION IN THE REGION OF THE BULB EXTENDING INTO BOTH THE PROXIMAL EXTERNAL AND INTERNAL CAROTID. THERE IS ALSO RELATIVE ELEVATION OF THE PEAK SYSTOLIC VELOCITY RATIO. 2. ON THE LEFT, THERE IS NO APPRECIABLE ELEVATION OF THE PEAK SYSTOLIC OR END DIASTOLIC VELOCITIES. THERE IS SOME CALCIFICATION AT THE CAROTID BULB EXTENDING INTO THE PROXIMAL ECA AND ICA WELL, BUT THE PEAK SYSTOLIC VELOCITY RATIO IS NORMAL ON TH LEFT. 3. WITH THE ELEVATED PEAK SYSTOLIC VELOCITY RATIO ON THE RIGHT, THE POSSIBILITY OF AT LEAST MODERATE STENOSIS IS RAISED. FOLLOW-UP CTA OF THE NECK MAY BE USEFUL FOR FURTHER EVALUATION. JOB NUMBER: [id number] MTDD
[2017-07-19] MEDS ORDERED: RIVAROXABAN 20 MG TABLET PO SCH (10:00)
[2017-07-19] MEDS ORDERED: AMIODARONE HCL 200 MG TABLET PO SCH (10:00)
[2017-07-19] MEDS ORDERED: MULTIVITAMINS/MINERALS TABLET PO SCH (10:00)
[2017-07-19] MEDS ORDERED: FAMOTIDINE 20MG TABLET PO SCH (10:00)
[2017-07-19] MEDS: FUROSEMIDE IV 20MG/2ML VIAL IVP SCH ×2 (10:05→15:33)
[2017-07-19] MEDS: POTASSIUM CHLORIDE 20 MEQ TABLET PO SCH (10:06)
[2017-07-19] MEDS ORDERED: MAGNESIUM HYDROXIDE 30 ML UDC PO ONE (10:32)
[2017-07-19] MEDS ORDERED: ACETAMINOPHEN 500 MG TABLET PO ONE (10:32)
--- NOTE | 2017-07-19 10:43 | Physician Progress Note ---
Subjective - Date Date of Physician Progress Note: 07/19/17 - Subjective Location: Head Quality: Aching Consistency: Constant Objective - Vital Signs Vital Signs: Vital Signs - Last 24 Hrs Temp Pulse Pulse Resp BP Pulse Ox 07/19/17 09:24 97.9 F 100 H 16 123/85 96 07/19/17 08:03 90 18 07/19/17 06:10 98 07/19/17 06:00 98.1 F 90 18 113/85 96 07/19/17 02:00 97.6 F 94 H 18 116/79 96 07/18/17 21:57 98.3 F 94 H 18 122/79 96 07/18/17 21:20 74 94 L 07/18/17 21:00 16 07/18/17 18:21 97.6 F 89 17 108/73 96 07/18/17 14:21 98 F 97 H 18 126/94 97 07/18/17 12:19 100 H 16 07/18/17 11:34 97.7 F 100 H 16 125/85 97 - General General Appearance: Alert, Oriented x3, Cooperative, No acute distress Limitations: No limitations - Head Head exam: Atraumatic, Normocephalic, Normal inspection - Eye Eye exam: Normal appearance, PERRL, EOMI. negative: Conjunctival injection, Periorbital swelling, Scleral icterus - ENT ENT exam: Normal exam, Mucous membranes moist, Normal orophraynx Ear exam: Normal external inspection Nasal Exam: Normal inspection Mouth exam: Normal external inspection Teeth exam: Normal inspection Throat exam: Normal inspection - Neck Neck exam: Normal inspection, Full ROM. negative: Tenderness - Respiratory Respiratory exam: Decreased breath sounds. negative: Accessory muscle use, Prolonged expiratory - Cardiovascular Cardiovascular Exam: Regular rate, Normal rhythm, Normal heart sounds Peripheral Pulses: 2+: Radial (R), Radial (L), Dorsalis Pedis (R), Dorsalis Pedis (L) - GI/Abdominal GI/Abdominal exam: Soft, Normal bowel sounds. negative: Tenderness - Rectal Rectal exam: Deferred - exam: Deferred - Extremities Extremities exam: Full ROM, Pedal edema (bilateral +3). negative: Calf tenderness, Tenderness - Back Back exam: Reports: Normal inspection, Full ROM. Denies: CVA tenderness (R), CVA tenderness (L), Muscle spasm, Rash noted, Tenderness - Neurological Neurological exam: Alert, Normal gait, Oriented X3, Reflexes normal - Psychiatric Psychiatric exam: Normal affect, Normal mood - Skin Skin exam: Dry, Intact, Normal color, Warm Assessment and Plan - Assessment and Plan (1) CHF (congestive heart failure) Current Visit: Yes Status: Acute Qualifiers: Heart failure type: unspecified Heart failure chronicity: acute on chronic Qualified Code(s): I50.9 - Heart failure, unspecified Base Code: I50.9 - HEART FAILURE, UNSPECIFIED Priority: High Onset Date: ~ Comment: 07/18/17 -off lasix "years" with known CHF -+3 pitting edema BLE to the knees -K 3.9 (given lasix in ED), supped 40 Meq PO NOW -continue IVP lasix 20mg BID 07/19/17 -edema has decreased to below the knee, still +3 pedal -continue IV lasix 20mg BID -K 48.8, AM K supp held -Echo being completed, awaiting report -K 20 Meq BID -monitor lytes (2) Atrial fibrillation Current Visit: Yes Status: Chronic Qualifiers: Atrial fibrillation type: chronic Qualified Code(s): I48.2 - Chronic atrial fibrillation Base Code: I48.91 - UNSPECIFIED ATRIAL FIBRILLATION Onset Date: ~07/18/17 Comment: 07/18/17 -chronic Afib -PPM/ICD -[employer] anti-coagulation use 07/19/17 -continues in AFIB, controlled rate other than with ambulation (3) Dizziness Current Visit: Yes Status: Acute Base Code: R42 - DIZZINESS AND GIDDINESS Onset Date: ~07/18/17 Comment: 07/18/17 -CT head negative for acute process - varinder carotid US- awaiting results 07/19/17 -Varinder carotid US- possible R mod stenosis -recommeded CTA neck- ordered, to be completed today -denies dizzyness today (4) Full code status Current Visit: Yes Status: Acute Base Code: Z78.9 - OTHER SPECIFIED HEALTH STATUS Onset Date: ~07/18/17 Comment: 07/18/17 - continue full code status 07/19/17 -continue full code status (5) DVT prophylaxis Current Visit: Yes Status: Acute Base Code: [id number] - Comment: 07/18/17 -continue anti-coagulation with Xareltol 07/19/17 -continue Xarelto Results - Labs Result Diagrams: 07/18/17 08:47 07/19/17 06:21 Labs Last 24 Hours: Laboratory Results - last 24 hr 07/18/17 07/19/17 07/19/17 16:50 01:20 06:21 Sodium 141 Potassium 4.8 H Chloride 103 Carbon Dioxide 29.0 Anion Gap 9.0 BUN 22 Creatinine 1.0 Estimated GFR > 60 Random Glucose 93 Calcium 9.4 Troponin T < 0.010 < 0.010 DVT/PE Assessment - Risk for VTE Risk for VTE: No Risk Level: Moderate Risk Assessment Date: 07/18/17 Risk Assessment Time: 12:56 VTE Orders Placed or Will Be Placed: No VTE Reason for No Prophylaxis: Contraindicated (senior living anticoagulation use- current) - Active Medicaitons Current Medications: Current Medications Acetaminophen (Tylenol 500mg Tab) 1,000 mg PO NOW ONE Stop: 07/19/17 10:33 Amiodarone HCl (Pacerone) 200 mg PO DAILY [facility] Last Admin: 07/19/17 10:01 Dose: 200 mg Famotidine (Pepcid) 20 mg PO BID [facility] Last Admin: 07/19/17 10:03 Dose: 20 mg Furosemide (Lasix Iv) 20 mg IVP BIDDIUR [facility] Last Admin: 07/19/17 10:05 Dose: 20 mg Latanoprost (Xalatan) 1 drop OPTH QHS [facility] Last Admin: 07/18/17 22:06 Dose: 1 drop Magnesium Hydroxide (Milk Of Magnesium) 30 ml PO NOW ONE Stop: 07/19/17 10:33 Multivitamins/Minerals (Centrum) 1 tab PO DAILY [facility] Last Admin: 07/19/17 10:01 Dose: 1 tab Potassium Chloride (Klor-Con) 20 meq PO BID [facility] Last Admin: 07/19/17 10:06 Dose: Not Given Rivaroxaban (Xarelto) 20 mg PO DAILY [facility] Last Admin: 07/19/17 10:03 Dose: 20 mg Simvastatin (Zocor) 10 mg PO QHS [facility] Last Admin: 07/18/17 22:06 Dose: 10 mg Temazepam (Restoril) 15 mg PO QHS PRN PRN Reason: SLEEP AMI Plan - Labs Result Diagrams: 07/18/17 08:47 07/19/17 06:21
--- NOTE | 2017-07-19 13:12 | CT ANGIOGRAM REPORT ---
EXAM: EMERGENCY CTA OF THE NECK WITH CONTRAST HISTORY: POSSIBLE CAROTID STENOSIS ON DOPPLER ULTRASOUND, NECK CTA REQUESTED FOR FURTHER EVALUATION. TECHNIQUE: CTA of the neck was performed following the intravenous administration of 90 ml of Omnipaque 350 as the IV contrast. Post processing on an independent workstation was performed with multiple 3D MIP and volume rendered series obtained. Comparison: No prior neck CTA with which to compare. Comparison is made with yesterday's Doppler ultrasound of 07/18/17. PQRI documentation: All internal carotid artery percent stenoses are calculated utilizing the distal internal carotid artery diameter as the denominator (NASCET criteria). FINDINGS: The patient is postop sternotomy. There is a cyst or polyp posteriorly in the left ethmoid sinus. Multilevel degenerative change in the cervical spine with advanced degenerative change at the odontoid-anterior arch of C1 articulation, mild narrowing of multiple cervical interspaces, and some ligamentous calcification posteriorly. RIGHT VERTEBRAL: The timing of the scans relative to the contrast bolus are such that the proximal aspects of the carotid and vertebral arteries are not adequately evaluated with contrast. The right vertebral is reasonably well opacified with contrast beginning at about the C6 level. The vertebrals are relatively codominant in size and once well opacified, the right vertebral appears negative with no high grade stenosis, occlusion, or dissection evident. The two vertebrals unite intracranially to form the basilar. LEFT VERTEBRAL: Similar to that on the right, the proximal aspect of the left vertebral is not adequately opacified with contrast, but again, beginning at approximately the C6 level, there is good opacification of the left vertebral which also appears negative throughout its course up in the neck and into the posterior fossa with no high grade stenosis, occlusion, or dissection evident. RIGHT CAROTID: Similar to the vertebrals, the proximal right common carotid is not adequately opacified, but beginning at about the C6 level is well opacified and appears negative until just before the bifurcation where some progressive calcification is present. This extended into both the proximal ICA and ECA and results in a very high grade stenosis in the proximal right carotid artery to the point where this is almost a near occlusion string sign for a length of about 11 mm. Above this the right ICA appears essentially clear with no additional stenosis in the cervical right ICA more superiorly evident. Moderate calcification incidentally noted in the cavernous and duane-clinoid intracranial segments. LEFT CAROTID: Similar to the right, the proximal left carotid is not sufficiently opacified with contrast, but beginning at approximately the C6 level superiorly there is adequate opacification of the left common carotid. There is mild calcification of the mid to distal left common carotid and heavy calcification at the bifurcation extending into both the proximal ECA and ICA. This results in a stenosis of approximately 45% for a length of about 6 mm. Above this stenosis there is again seen to be a small amount of calcification in the upper cervical left ICA just before entering the petrous segment intracranially, but no appreciable associated stenosis associated with this. Calcification seen in the cavernous and petrous segments intracranially similar to that on the right. IMPRESSION: 1. 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 2. APPROXIMATELY 45% STENOSIS OF THE PROXIMAL LEFT ICA. JOB NUMBER: [id number] MTDD
--- NOTE | 2017-07-19 22:05 | Medical Records Consult ---
DATE OF CONSULTATION: 07/19/17 PRIMARY CARE PHYSICIAN: DR. HOLGER CHAVARRIA REFERRING PHYSICIAN: DR. ELIAS CONSULTING PHYSICIAN: MINO HALE M.D. REASON FOR CONSULTATION: CONGESTIVE HEART FAILURE. HISTORY OF PRESENT ILLNESS: Mr. Myles is a 76-year-old gentleman who is an established patient of [facility] and has ischemic cardiomyopathy. The patient has had coronary artery bypass grafting surgery back in 2003 and also has an ICD implanted. He also has a history of paroxysmal atrial fibrillation. The patient has not been able to tolerate PRICILLA inhibitor or any Beta-blockers because of his low blood pressure and lightheadedness and dizziness but he has been able to tolerate Amiodarone, which he has been continued on. He also has been on Corlanor, as he has been maintaining sinus rhythm until now. The patient has been having very significant dyspnea on exertion for the last one week, which has been progressively getting worse. He was started on thyroid supplementation about two weeks ago and the patient says that since he has been on the thyroid supplementation, he has been feeling very jittery and anxious and started having tremors and also had GI upset. He the dose to 12.5 mcg by cutting the tablet in half, however, he still was having these symptoms and then he was asked by Dr. Chavarria to stop the medication, rightly so. The patient denies any chest pain. He also has been having progressively worsening pedal edema. He was admitted yesterday because of the heart failure exacerbation and has been on Lasix and he has done really well. He has been in atrial fibrillation with controlled ventricular response. PAST MEDICAL HISTORY IS SIGNIFICANT FOR: 1. History of coronary artery disease status post coronary artery bypass grafting surgery. 2. History of ischemic cardiomyopathy with an ICD placement. 3. History of hypothyroidism. 4. History of paroxysmal atrial fibrillation. ALLERGIES: THE PATIENT IS ALLERGIC TO LISINOPRIL, IT CAUSES HIM TO HAVE DIZZINESS. HE IS ALSO ALLERGIC TO AVODART, WHICH CAUSES SWELLING. HOME MEDICATIONS: Colanor 2.5 mg p.o. b.i.d. Amiodarone 200 mg p.o. daily Ranitidine 150 mg p.o. b.i.d. Xarelto 20 mg daily Simvastatin 10 mg p.o. daily REVIEW OF SYSTEMS: The patient denies any fevers or chills. Denies any productive cough. Denies any hematochezia or melena. The patient complains of shortness of breath as well as orthopnea as well as paroxysmal nocturnal dyspnea. He also has progressively worsening pedal edema. PHYSICAL EXAMINATION: GENERAL: Mr. Myles is a delightful 76-year-old gentleman who is sitting comfortably in bed, not in any apparent distress. He is alert and oriented x3. He is very happy with his progress and his ability to breathe now. VITAL SIGNS: The patient's blood pressure was 132/97 mmHg in the Emergency Department. On the telemonitor, he is in A-fib with controlled ventricular rate at 60 beats per minute. CVS: On CVS examination, he has irregularly regular heart rhythm. NECK: The patient doesn't have any JVD. LUNGS: Lungs are clear to auscultation bilaterally. No carotid bruit. EXTREMITIES: He has +2 bilateral pedal edema. NEUROLOGIC: Neurologic examination is nonfocal. LABORATORY DATA: Shows a white count of 7.0. Hemoglobin 14.3. Hematocrit 44.3. Platelet count 131. Sodium 142. Potassium 3.9. Chloride is 104. CO2 27. BUN 25. Creatinine 1.1. Blood glucose was 94. ALT and AST are normal at 23 and 29, respectively. Troponin was less than 0.010. TSH is mildly elevated at 4.44. N- terminal proBNP is 1234, which is in the normal range for his age. CT head was negative for any acute intracranial process. The patient also underwent a carotid duplex as well as a carotid CTA. I reviewed both of them and his peak velocities on the carotid are within normal limits and his peak diastolic velocities are also within normal limits with a peak systolic to diastolic ratio of 2.2. This is in the less than 50% stenosis bilaterally. However, he had a carotid CTA performed, which was interpreted by the Radiologist as a string sign on the right internal carotid artery, however, I reviewed the CTA myself and I don't see the string sign that was described. Rather, there was no significant stenosis identified on the CTA on my read. ASSESSMENT AND PLAN: 1. CONGESTIVE HEART FAILURE: The patient has systolic and diastolic heart failure, most likely secondary to atrial fibrillation. The patient has been on IV diuresis, to which he has responded very nicely. He also has been on fluid and sodium restriction, which will be continued. The patient, however, is fairly stable at this time and would like to be discharged home. We can continue him on Lasix 40 mg daily with potassium supplementation as an outpatient and I asked him to continue to limit his sodium and fluid. I am also planning to do a cardioversion on him. As he has been on Xarelto, we don't need a TE. We would schedule him for a cardioversion as an outpatient. The procedure was explained to the patient. He has undergone cardioversion in the past and he sounds understanding and agrees to proceed with the plan. The patient doesn't have any significant carotid artery stenosis and I do not feel the need for him to have any carotid revascularization performed at this time. The patient has been on Corlanor for his heart failure, however, that would only be effective if he is in sinus rhythm, so I'll have him stop the Corlanor until we achieve sinus rhythm. Thank you very much. JOB NUMBER: [id number] MTDD
--- NOTE | 2017-07-20 07:48 | Discharge Summary ---
Providers Discharge Summary Date: 07/19/17 Date of admission: 07/18/17 10:56 Expected Date of Discharge: 07/19/17 Attending physician: EMELY ELIAS Primary care physician: HOLGER CHAVARRIA D.O. Consults: Consult Orders 07/18/17 13:22 Consult - Cardiology NOW Consulting Provider: MINO HALE Physician Instructions: see pt inpt med/surg Reason For Exam: CHF exacerbation Does pt have current director river restoration?: Swetha Physical Exam - Vital Signs Vital Signs: Vital Signs - Last 24 Hrs Temp Pulse Resp BP Pulse Ox 07/19/17 18:55 97.5 F L 87 18 108/70 96 07/19/17 14:40 97.6 F 70 18 99/63 95 07/19/17 09:24 97.9 F 100 H 16 123/85 96 07/19/17 08:03 90 18 - General General Appearance: Alert, Oriented x3, Cooperative, No acute distress Limitations: No limitations - Head Head exam: Atraumatic, Normocephalic, Normal inspection - Eye Eye exam: Normal appearance, PERRL, EOMI. negative: Conjunctival injection, Periorbital swelling, Scleral icterus - ENT ENT exam: Normal exam, Mucous membranes moist, Normal orophraynx Ear exam: Normal external inspection Nasal Exam: Normal inspection Mouth exam: Normal external inspection Teeth exam: Normal inspection Throat exam: Normal inspection - Neck Neck exam: Normal inspection, Full ROM. negative: Tenderness - Respiratory Respiratory exam: Decreased breath sounds. negative: Accessory muscle use, Prolonged expiratory - Cardiovascular Cardiovascular Exam: Regular rate, Normal heart sounds, Irregular rhythm Peripheral Pulses: 2+: Radial (R), Radial (L), Dorsalis Pedis (R), Dorsalis Pedis (L) - GI/Abdominal GI/Abdominal exam: Soft, Normal bowel sounds. negative: Tenderness - Rectal Rectal exam: Deferred - exam: Deferred - Extremities Extremities exam: Full ROM, Pedal edema (bilateral 1+). negative: Calf tenderness, Tenderness - Back Back exam: Reports: Normal inspection, Full ROM. Denies: CVA tenderness (R), CVA tenderness (L), Muscle spasm, Rash noted, Tenderness - Neurological Neurological exam: Alert, Normal gait, Oriented X3, Reflexes normal - Psychiatric Psychiatric exam: Normal affect, Normal mood - Skin Skin exam: Dry, Intact, Normal color, Warm Hospitalization - Hospitalization Admission Diagnosis: CHF, dizziness - Problem List/Discharge Diagnosis (1) CHF (congestive heart failure) Status: Acute Discharge Diagnosis: Heart failure type: unspecified Heart failure chronicity: acute on chronic Qualified Code(s): I50.9 - Heart failure, unspecified Base Code: I50.9 - HEART FAILURE, UNSPECIFIED Onset Date: ~07/18/17 Comment : 07/18/17 -off lasix "years" with known CHF -+3 pitting edema BLE to the knees -K 3.9 (given lasix in ED), supped 40 Meq PO NOW -continue IVP lasix 20mg BID 07/19/17- improving. He has diuresed very well with lasix 20mg IV bid. Dr. Hale, patient's director river restoration, consulted and evaluated patient. He felt acute CHF likely related to recurrence of his afib. Patient is anticoagulated and therefore Dr. Hale will set him up for cardioversion next week as outpatient. -will plan to discharge home today -he will continue oral lasix at home, Dr. Hale has written prescription for patient, as well as his xarelto and follow up for cardioversion on Tuesday next week. (2) Atrial fibrillation Status: Chronic Discharge Diagnosis: Atrial fibrillation type: chronic Qualified Code(s): I48.2 - Chronic atrial fibrillation Base Code: I48.91 - UNSPECIFIED ATRIAL FIBRILLATION Onset Date: ~07/18/17 Comment: 07/19/17- patient has paroxysmal afib and had in in NSR according to Dr. Hale. He continues in afib currently with rate conrolled. -PPM/ICD -timber sizer anti-coagulation use with xarelto. -Dr. Hale would like patient to continue amiodorone, xarelto and lasix 40mg po daily and follow up next week outpatient for cardioversion. (3) DVT prophylaxis Status: Acute Base Code: [id number] - Comment: 07/19/17 -continue Xarelto (4) Dizziness Status: Acute Base Code: R42 - DIZZINESS AND GIDDINESS Onset Date: ~ Comment: 07/19/17 -CT head negative for acute process - khurram carotid US-rads recommended CTA of the neck which was interpreted as a string sign on right side. Dr. Hale read the CTA as well and did not find convining evidence of this and systolic/diastolic velocities were within the moderate range. he is not recommending any interventions at this time. (5) Full code status Status: Acute Base Code: Z78.9 - OTHER SPECIFIED HEALTH STATUS Onset Date: ~ 07/18/17 Comment: 07/19/17 -continue full code status - Hospitalization Course Disposition: Home, Self-Care Hospital Course: 76 yo male presents for CHF exacerbation and dizziness. PMH CABG, PPM/ICD, HTN, Afib (chronic) and skilled nursing anticoagulation. Off lasix for several years, unknown. Pt has known CHF, was taken off Lasix "several years ago" but does not now why. Pt was seen by PCP within the week but no med changes at that time. ED -Given Lasix 20mg IVP, 820mL out put -BP 132/97, HR 102, RR 15, 98% RA, temp 97.6F -CBC, 7, Hgb 14.3, Hct 44.3, Plt 131,NA 143, K 3.9, Cl 104, CO2 27, BUN 25, creatinine 1.1, glucose 94, BNP 1234, TSH 4.44 -CXR negative for acute process -CT head- negative for acute process -admitted CHF, dizziness, cardiology consult in AM 07/18/17 Pt in no acute distress, ambulates without assistance. No noted SOB but pt reports increased SOB over the past several days. +3 pitting edema to KHURRAM knees, pulses +2 DP/PT Lungs clear to auscultation K 40 Meq PO given at this time, mag serum ordered to be added to ER labs. POC IV lasix BID, K 20 meq BID continue on tele obtaining EKG 07/19/17- patient is doing well today. He says he is no longer SOB which was his initial presentation. He notes the swelling in his feet and legs has decreased significantly. HE does report good urine output with the IV lasix. Continues to be in adiv with rate controlled. Dr. Hale evaluating patient this afternoon. Dr. Hale recommending outpatient cardioversion for afib. Will plan to discharge home this evening and follow up next week with Dr. Hale for that procedure. Procedures: Imaging and X-Rays 07/19/17 08:36 NECK CTA w contrast [CTA] Stat Abnormal Labs: Abnormal Lab Results 07/19/17 Range/Units 06:21 Potassium 4.8 H (3.4-4.5) mmol/L Condition at Discharge: (2) Stable Discharge Medications - Discharge Medications Home Medications: Ambulatory Orders Latanoprost 0.005% Opth Lisa [Xalatan] 2.5 ml OP DAILY 10/25/15 [Last Taken 1 Day Ago ~07/17/17] Midodrine HCl 2.5 mg PO BID 10/25/15 [Last Taken 1 Day Ago ~07/17/17] Multivit-Min/FA/Lycopen/Lutein [Centrum Silver Tablet] 1 each PO DAILY 10/25/15 [Last Taken 1 Day Ago ~07/17/17] Nitroglycerin [Nitrostat] 0.4 mg SL ASDIR 10/25/15 [Last Taken 1 Day Ago ~] Ranitidine HCl [Zantac] 150 mg PO BID 10/25/15 [Last Taken 1 Day Ago ~07/17/17] Rivaroxaban [Xarelto] 20 mg PO DAILY 10/25/15 [Last Taken 1 Day Ago ~07/17/17] Saw Frost 450 mg PO BID 10/25/15 [Last Taken 1 Day Ago ~07/17/17] Simvastatin [Zocor] 10 mg PO DAILY 10/25/15 [Last Taken 1 Day Ago ~07/17/17] Temazepam 15 mg PO ASDIR PRN 10/25/15 [Last Taken 1 Day Ago ~07/17/17] Amiodarone HCl 200 mg PO DAILY 06/06/16 [Last Taken 1 Day Ago ~07/17/17] Carvedilol 6.25 mg PO BID 06/06/16 [Last Taken 1 Day Ago ~07/17/17] Furosemide [Lasix] 40 mg PO DAILY 07/19/17 [Last Taken Unknown] Potassium Chloride 10 meq PO DAILY 07/19/17 [Last Taken Unknown] Discharge Plan - Discharge Instructions Activity at Discharge: Resume Usual Activities As Tolerated Diet at Discharge: Low Salt Diet Instructions: Furosemide (By mouth), Potassium Chloride (By mouth), Heart Failure (DC), A-fib (Atrial Fibrillation) (DC) Additional Instructions: 2 Activity: As tolerated 2 Diet: 2000mg of sodium or less per day 64 ounces of liquid per day 2 Follow Up: With Dr Hale on July 26. His office will call you with the time. 2 Dressing/Wound Care: (Type) (Change) 2 Additional: Return to the closest emergency department with any new or worsening symptoms. Do not miss any doses of your Xarelto Do not take Corlanor until you see Dr Hale Quality Measures - Quality Measures Quality Measures: Atrial Fibrillation & Atrial Flutter: Chronic Anticoagulation Therapy, Advance Directives, Documentation of Current Medications in Medical Record, Elder Maltreatment Screen and Follow-Up Plan, Heart Failure, Screening for High Blood Pressure and F/U Documented - Current Medications Quality Measure: Measure #130: Documentation of Current Medications Documentation of Current Medications: <Current Medications Documented/Reviewed> [J1361] - Blood Pressure Screening Quality Measure: Screening for High Blood Pressure and Follow-Up Documented Does Patient Have Any of the Following: Active Dx of HTN Blood Pressure Classification: Hypertensive Reading Systolic Measurement: 132 Diastolic Measurement: 97 Screening for High Blood Pressure: Patient Exclusion, Hx of HTN [J6254] - Atrial Fibrillation and Atrial Flutter Quality Measure: Atrial Fibrillation & Atrial Flutter: Chronic Anticoagulation Therapy Does Patient Have Any of the Following: No CHADS2 Risk Stratification: Age 75 or Greater, Hypertension, Heart Failure or Impaired LVSF Risk Stratification Summary: One or more high risk factors OR more than one moderate risk factor exists. [S8972] Anticoagulation Therapy: <Oral anticoagulant Prescribed> [T5171] - Heart Failure (PRICILLA/ARB Therapy) Quality Measure: Heart Failure Left Ventricular Systolic Function: LV Ejection Fraction less than 40% [3021F] PRICILLA Inhibitor or ARB Therapy for LVSD: Not Prescribed for Medical Reason [4010F with 1P] Medical Reason for NOT Prescribing: Hypotensive and at risk of cardiogenic shock - Heart Failure (Beta-rosanna Therapy) Quality Measure: Heart Failure Left Ventricular Systolic Function: LV Ejection Fraction less than 40% [3021F] Beta-Rosanna Therapy for LVEF < 40%: Not Prescribed Reason Documented [G8451] Reason for NOT Prescribing: Low Blood Pressure - Advance Directives Quality Measure: Measure #47: Care Plan Advance Directives Established: No Advance Directives Information Provided To Patient: Declined Advance Directives on File: No Living Will: No Power of Men'S Furnishings Salesperson: No Advance Care Planning: <Care Plan/Decision Maker Not Decided; Discussed & Documented> [0564F] - Elder Abuse Suspicion Index Screening: Elder Abuse Suspicion Index Screening Rely on people for bathing, dressing, shopping, banking, etc: No Prevented from getting food, clothes, medication, etc: No Made to feel shamed or threatened by someone: No Forced to sign papers or use money against will: No Feel afraid, touched in ways not wanted or hurt physically: No Poor eye contact, withdrawn, malnourished, cuts or bruises: No Screening Result: Negative result EASI Reference Information: Erika VILLEDA, Thu C, Kacy Herrera, Annamarie Sharpe.Development and validation of a tool to assist physicians identification of elder abuse: The Elder Abuse Suspicion Index (EASI ). Journal of Elder Abuse and Neglect, 2008; 20 (3): 276-300. - Elder Maltreatment Screen Quality Measures: Elder Maltreatment Screen and Follow-Up Plan Elder Maltreatment Screen: <Negative, No Follow-Up Plan Required> [G8734]
== END 2017-07-19 19:02 | disposition home or self-care (01) ==
LOC: ER 08:36 → MEDSURG 10:56
PROVIDERS: ADMIT Internal Medicine; ATTEND Internal Medicine
DX: I50.9 Heart failure, unspecified (principal); I48.0 Paroxysmal atrial fibrillation; Z79.01 Long term (current) use of anticoagulants; I25.2 Old myocardial infarction; M06.9 Rheumatoid arthritis, unspecified; R06.02 Shortness of breath; I95.9 Hypotension, unspecified; Z95.1 Presence of aortocoronary bypass graft; Z95.0 Presence of cardiac pacemaker; Z85.828 Personal history of other malignant neoplasm of skin; R60.0 Localized edema; Z87.891 Personal history of nicotine dependence
CPT/HCPCS: 83735; 85025; 85730; 85610; 80048; 80053; 84443; 84484 ×2; 83880; 71046; 93880; 70498; 70450; 94760 ×2; 93005 ×2; 93010; G0378 ×2; Q9967; J3490; 93307; 96374; 99217; 99220; 99285; J1940

== ENCOUNTER 2017-07-26 11:08 | Day surgery (SDC) | payer MEDICARE ==
[2017-07-26] MEDS ORDERED: PROPOFOL 10 MG/ML VIAL IV ONE (11:09)
[2017-07-26] MEDS ORDERED: LIDOCAINE 2% MDV (20MG/ML) 20ML VIAL IV ONE (11:09)
[2017-07-26 12:27] LABS: BASO % 0.2 % (0-6); EOS % 1.5 % (0-6); GRAN % 64.9 % (47-80); LYMPH % 20.9 % (16-45); MEAN CELL VOLUME 98.9 fl (81-97); MEAN CORPUSCULAR HEMOGLOBIN 33.7 pg (27-33); MEAN CORPUSCULAR HGB CONC 34.1 g/dl (32-36); MEAN PLATELET VOLUME 11.2 fl (7.4-10.4); MONO % 12.5 % (0-9); PLATELET COUNT 197 K/uL (130-400); RED BLOOD COUNT 4.45 M/uL (4.40-5.70); RED CELL DISTRIBUTION WIDTH 14.9 % (11.5-14.5); WHITE BLOOD COUNT W/O DIFF 5.4 K/uL (4.2-12.2)
[2017-07-26 13:20] LABS: ALB/GLOB RATIO 1.4 (1.1-1.8); ALKALINE PHOSPHATASE 59 U/L (40-129); ALT/SGPT 28 U/L (<41); AST/SGOT 28 U/L (10.0-50.0); BLOOD UREA NITROGEN 25 mg/dL (8-23); EST GLOMERULAR FILTRATION RATE > 60 mL/min; GLUCOSE,RANDOM 100 mg/dL (74-109); TOTAL PROTEIN 6.8 g/dL (6.6-8.7)
--- NOTE | 2017-07-27 14:52 | Operative Note ---
DATE OF PROCEDURE: 07/26/17 PROCEDURE: CARDIOVERSION. OPERATING PHYSICIAN: Domenica Mensah M.D. INDICATIONS: Atypical atrial flutter. PROCEDURE DESCRIPTION: Mr. Myles was brought into the Cardioversion Room in a fasting state. The defibrillation pads were applied in the anteroposterior position. Pacemaker interrogation was performed, which confirmed the patient to be in atrial flutter. After administering anesthesia, a synchronized cardioversion with 50 joules of biphasic energy was used, which was successful in converting him into sinus rhythm. IMPRESSION: SUCCESSFUL CARDIOVERSION WITH 50 JOULES OF BIPHASIC ENERGY. JOB NUMBER: [id number] MTDD
== END 2017-07-26 14:39 | disposition home or self-care (01) ==
LOC: SUR 11:08
PROVIDERS: ATTEND Internal Medicine
DX: I48.4 Atypical atrial flutter (principal); I48.91 Unspecified atrial fibrillation; Z79.01 Long term (current) use of anticoagulants; E78.00 Pure hypercholesterolemia, unspecified
CPT/HCPCS: 80053; 85025; 93005

== ENCOUNTER 2017-08-18 19:39 | Emergency (ER) | payer MEDICARE ==
[2017-08-18 20:30] LABS: HEMATOCRIT 45.3 % (42.0-52.0); HEMOGLOBIN 14.5 gm/dl (14.0-18.0); MEAN CELL VOLUME 99.6 fl (81-97); MEAN CORPUSCULAR HEMOGLOBIN 31.9 pg (27-33); MEAN PLATELET VOLUME 9.4 fl (7.4-10.4); PLATELET COUNT 145 K/uL (130-400); RED BLOOD COUNT 4.55 M/uL (4.40-5.70); RED CELL DISTRIBUTION WIDTH 14.3 % (11.5-14.5); WHITE BLOOD COUNT W/O DIFF 5.6 K/uL (4.2-12.2)
[2017-08-18 20:41] LABS: INR 1.3; PARTIAL THROMBOPLASTIN TIME 37.3 SECONDS (24.5-39.1); PROTHROMBIN TIME (PATIENT) 14.1 SECONDS (9.5-12.1)
[2017-08-18 20:49] LABS: PLATELET ESTIMATE NORMAL (NORMAL)
--- NOTE | 2017-08-18 21:02 | Emergency Department Record ---
History of Present Illness - General Chief Complaint: Laceration(s) Stated Complaint: LACERATION Time Seen by Provider: 08/18/17 20:00 Source: Patient Mode of Arrival: Ambulatory Limitations: No limitations - History of Present Illness Initial Commments: pt was showering and was washing his genitalia when he had a sudden onst of bleeding from his scrotum. he didnt know of any injury or scratch. the bleeding has now stopped after he applied pressure..he also felt like his heart was beating fast when he first arrived. Onset/Timin -: Minutes(s) Location: Genitals Place: Home Context: Accidental Associated Symptoms: None - Related Data Hx Tetanus Toxoid Vaccination: Yes Year of Tetanus Vaccination: 2014 Allergies Allergy/AdvReac Type Severity Reaction Status Date / Time dutasteride [From Avodart] Allergy Intermediate SWELLING Verified 07/18/17 08:45 (GENERAL) zolpidem AdvReac Severe ALTERED Verified 07/18/17 08:45 MENTAL STATUS lisinopril AdvReac Intermediate DIZZINESS Verified 07/18/17 08:45 Travel Screening - Travel/Exposure Within Last 30 Days Have you traveled within the last 30 days?: No Review of Systems Reviewed: No additional complaints except as noted below Constitutional: Reports: As per HPI. Denies: Chills, Fever, Malaise, Night sweats, Weakness, Weight change Eyes: Reports: As per HPI. Denies: Eye discharge, Eye pain, Photophobia, Vision change ENT: Reports: As per HPI. Denies: Congestion, Dental pain, Ear pain, Epistaxis , Hearing loss, Throat pain Respiratory: Reports: As per HPI. Denies: Cough, Dyspnea, Hemoptysis, Stridor, Wheezes Cardiovascular: Reports: As per HPI. Denies: Arrhythmia, Chest pain, Dyspnea on exertion, Edema, Murmurs, Orthopnea, Palpitations, Paroxysmal nocturnal dyspnea, Rheumatic Fever, Syncope Endocrine: Reports: As per HPI. Denies: Fatigue, Heat or cold intolerance, Polydipsia, Polyuria Gastrointestinal: Reports: As per HPI. Denies: Abdominal pain, Constipation, Diarrhea, Hematemesis, Hematochezia, Melena, Nausea, Vomiting Genitourinary: Reports: As per HPI. Denies: Dysuria, Frequency, Hematuria, Incontinence, Retention, Testicular pain, Testicular mass, Urgency Musculoskeletal: Reports: As per HPI. Denies: Arthralgia, Back pain, Gout, Joint swelling, Myalgia, Neck pain Skin: Reports: As per HPI. Denies: Bruising, Change in color, Change in hair/ nails, Lesions, Pruritus, Rash Neurological: Reports: As per HPI. Denies: Abnormal gait, Confusion, Headache, Numbness, Paresthesias, Seizure, Tingling, Tremors, Vertigo, Weakness Psychiatric: Reports: As per HPI. Denies: Anxiety, Auditory hallucinations, Depression, Homicidal thoughts, Suicidal thoughts, Visual hallucinations Hematological/Lymphatic: Reports: As per HPI. Denies: Anemia, Blood Clots, Easy bleeding, Easy bruising, Swollen glands Past Medical History - SOCIAL HISTORY Smoking Status: Former smoker Alcohol Use: None Drug Use: None - RESPIRATORY Hx Respiratory Disorders: Yes Hx Pneumonia: Yes (not recent) Hx Sleep Apnea: Yes Hx of CPAP: No ("I couldn't wear it") - CARDIOVASCULAR Hx Cardio Disorders: Yes Hx Abnormal EKG: Yes (A fib) Hx Cardiac Cath: Yes (4 x) Hx Chest Pain: No (ME 2002) Hx CHF: Yes (2003, 07-18-) Hx Edema: Yes Hx Heart Attack: Yes (2002) Hx Hypotension: Yes Hx Irregular Heartbeat: Yes Hx Pacemaker/Defib: Yes (combo) Hx Coronary Stent: Yes (2) - NEURO Hx Neuro Disorders: Yes Hx Dizziness: Yes (recent with new onset a fib) Hx Headaches: Yes (all the time) - GI Hx GI Disorders: Yes Hx Reflux: Yes (on meds) Hx Nausea/Vomiting: No (denies) Hx of Polyps: Yes (1 small polyp removed 2000 & 3 removed in 1992) - Hx Genitourinary Disorders: Yes Hx Bladder Problem: Yes (urgency) Hx Prostate Problems: Yes (enlarged) - ENDOCRINE Hx Endocrine Disorders: No Comment:: Dr Montes advised not to take thyroid meds anymore - MUSCULOSKELETAL Hx Musculoskeletal Disorders: Yes Hx Arthritis: Yes (RA) - PSYCH Hx Psych Problems: Yes Hx Behavior Problems: Yes (gets night terrors) Comment:: said "don't touch him if night terrors,he'll swing at you" - HEMATOLOGY/ONCOLOGY Hx Hematology/Oncology Disorders: Yes Hx Bruising: Yes (on blood thinner-xarelto) Hx Cancer: Yes (skin-base of neck,nose x 3,chest & low back) Family Medical History Any Significant Family History?: Yes Hx Cancer: Grandparents Hx HTN: Father, Mother, Grandparents *Stroke Comment: uncles Physical Exam - General General Appearance: Alert, Oriented x3, Cooperative, Mild distress - Head Head exam: Normal inspection - Eye Eye exam: Normal appearance, PERRL, EOMI Pupils: Normal accommodation - ENT ENT exam: Normal exam, Mucous membranes moist, Normal external ear exam, Normal orophraynx Ear exam: Normal external inspection. negative: External canal tenderness Nasal Exam: Normal inspection. negative: Discharge, Sinus tenderness Mouth exam: Normal external inspection, Tongue normal Teeth exam: Normal inspection. negative: Dental caries Throat exam: Normal inspection. negative: Tonsillar erythema, Tonsillar exudate - Neck Neck exam: Normal inspection, Full ROM. negative: Tenderness - Respiratory Respiratory exam: Normal lung sounds bilaterally. negative: Respiratory distress - Cardiovascular Cardiovascular Exam: Regular rate, Normal rhythm, Normal heart sounds - GI/Abdominal GI/Abdominal exam: Soft, Normal bowel sounds. negative: Tenderness - Rectal Rectal exam: Deferred - exam: Other (dried blood over superficial vessels. no active bleeding, no laceration) - Extremities Extremities exam: Normal inspection, Full ROM, Normal capillary refill. negative: Tenderness - Back Back exam: Reports: Normal inspection, Full ROM. Denies: Muscle spasm, Rash noted, Tenderness - Neurological Neurological exam: Alert, CN II-XII intact, Normal gait, Oriented X3 - Psychiatric Psychiatric exam: Normal affect, Normal mood - Skin Skin exam: Dry, Intact, Normal color, Warm Course Vital Signs 08/18/17 19:45 Temperature 97 F L Pulse Rate [ 75 Pulse Ox Probe] Respiratory 20 Rate Blood Pressure 142/95 [Left Arm] Pulse Ox 96 - Reevaluation(s) Reevaluation #1: 08/18/17 21:21 no further bleeding Medical Decision Making - Lab Data Result diagrams: 08/18/17 20:21 Lab Results 08/18/17 08/18/17 Range/Units 20:21 20:21 WBC 5.6 (4.2-12.2) K/uL RBC 4.55 (4.40-5.70) M/uL Hgb 14.5 (14.0-18.0) gm/dl Hct 45.3 (42.0-52.0) % MCV 99.6 H (81-97) fl MCH 31.9 (27-33) pg MCHC 32.0 (32-36) g/dl RDW 14.3 (11.5-14.5) % Plt Count 145 (130-400) K/uL MPV 9.4 (7.4-10.4) fl Neutrophils % 58.0 (47-80) % Eosinophils % Not Reportable Basophils % Not Reportable Lymphocytes 25.0 (16-45) % Monocytes 16.0 H (0-9) % Platelet Estimate Normal (NORMAL) RBC Morphology Normal Eosinophil Count 1.0 (0-6) % PT 14.1 H (9.5-12.1) SECONDS INR 1.3 APTT 37.3 (24.5-39.1) SECONDS Disposition Disposition: Discharge Clinical Impression: Abrasion Disposition: Home, Self-Care Condition: (1) Good Instructions: Abrasion (ED), Rivaroxaban (By mouth) Additional Instructions: follow up with family doctor. return sooner if worse. dont shower for 24 hrs. Forms: Patient Portal Access Quality - Quality Measures Quality Measures: N/A - Blood Pressure Screening Does Patient Have Any of the Following: Active Dx of HTN Blood Pressure Classification: Hypertensive Reading Systolic Measurement: 142 Diastolic Measurement: 95 Screening for High Blood Pressure: Patient Exclusion, Hx of HTN [G9744]
== END 2017-08-18 21:31 | disposition home or self-care (01) ==
LOC: ER 19:39
DX: S30.813A Abrasion of scrotum and testes, initial encounter (principal); X58.XXXA Exposure to other specified factors, initial encounter; Y93.E1 Activity, personal bathing and showering; Y92.002 Bathroom of unspecified non-institutional (private) residence as the place of occurrence of the external cause; I48.91 Unspecified atrial fibrillation; I10 Essential (primary) hypertension; I25.2 Old myocardial infarction; I50.9 Heart failure, unspecified; Z79.01 Long term (current) use of anticoagulants; Z95.810 Presence of automatic (implantable) cardiac defibrillator
CPT/HCPCS: 85027; 85610; 85730; 93005; 93010; 99284

== ENCOUNTER 2018-08-31 10:10 | Day surgery (SDC) | payer MEDICARE ==
[2018-08-31] MEDS ORDERED: PROPOFOL 10 MG/ML VIAL IV ONE (10:11)
[2018-08-31] MEDS ORDERED: LIDOCAINE 2% MDV (20MG/ML) 20ML VIAL IV ONE (10:11)
[2018-08-31] MEDS ORDERED: KETAMINE HCL 100MG/1ML VIAL INJ ONE (10:11)
[2018-08-31 11:12] LABS: ABSOLUTE NEUTROPHIL COUNT 4.47; BASO % 0.3 % (0-6); EOS % 1.1 % (0-6); HEMATOCRIT 46.3 % (42.0-52.0); HEMOGLOBIN 14.6 gm/dl (14.0-18.0); LYMPH % 17.6 % (16-45); MEAN CELL VOLUME 98.1 fl (81-97); MEAN CORPUSCULAR HEMOGLOBIN 30.9 pg (27-33); MEAN CORPUSCULAR HGB CONC 31.5 g/dl (32-36); MEAN PLATELET VOLUME 9.7 fl (7.4-10.4); PLATELET COUNT 141 K/uL (130-400); RED BLOOD COUNT 4.72 M/uL (4.40-5.70); RED CELL DISTRIBUTION WIDTH 15.9 % (11.5-14.5); WHITE BLOOD COUNT W/O DIFF 6.5 K/uL (4.2-12.2)
[2018-08-31 11:30] LABS: ALB/GLOB RATIO 1.4 (1.1-1.8); ALKALINE PHOSPHATASE 73 U/L (40-129); ALT/SGPT 26 U/L (<41); AST/SGOT 28 U/L (10.0-50.0); BLOOD UREA NITROGEN 20 mg/dL (8-23); CREATININE 1.1 mg/dL (0.7-1.2); EST GLOMERULAR FILTRATION RATE > 60 mL/min; GLUCOSE,RANDOM 102 mg/dL (74-109); TOTAL PROTEIN 6.8 g/dL (6.6-8.7)
[2018-08-31 11:43] LABS: BASOPHIL 0.3 % (0-6); EOSINOPHIL 1.1 % (0-6); LYMPHOCYTE 17.6 % (16-45)
[2018-08-31] MEDS ORDERED: RINGERS SOLUTION,LACTATED 1,000 ML IV ONE (11:51)
--- NOTE | 2018-09-06 06:10 | Operative Note ---
INDICATION: Atrial flutter. PROCEDURE: The patient was brought to the cardioversion room in a fasting state. Defibrillation paddles are applied in the anterior and posterior position. Anesthesia is administered and a synchronized current of 100 joules of biphasic energy was used which was successful in cardioverting him on the first attempt. SERENA
== END 2018-08-31 12:42 | disposition home or self-care (01) ==
LOC: SUR 10:10
PROVIDERS: ATTEND Internal Medicine
DX: I48.92 Unspecified atrial flutter (principal); K21.9 Gastro-esophageal reflux disease without esophagitis; Z79.01 Long term (current) use of anticoagulants; E78.00 Pure hypercholesterolemia, unspecified; R60.9 Edema, unspecified; H40.9 Unspecified glaucoma; I50.9 Heart failure, unspecified; Z95.1 Presence of aortocoronary bypass graft; Z95.0 Presence of cardiac pacemaker
CPT/HCPCS: 92960; 00410; 80053; 85027; 93005; J3490; J7120

== ENCOUNTER 2019-05-03 10:05 | Day surgery (SDC) | payer MEDICARE ==
[2019-05-03] MEDS ORDERED: 0.9 % SODIUM CHLORIDE 1000ML 1,000 ML IV ONE (11:10)
--- NOTE | 2019-05-03 14:53 | Operative Note ---
DATE OF PROCEDURE: 05/03/2019 INDICATION: Atrial flutter/fibrillation. SURGEON: Domenica Mensah M.D. PROCEDURE: Mr. Myles has a history of ischemic cardiomyopathy as well as paroxysmal atrial fibrillation and flutter. The patient was scheduled for cardioversion because of his arrhythmia. He has been on Amiodarone as well as Xarelto which has been continued. The patient was brought into the Cardioversion Room in a fasting state. Defibrillation pads were applied in the anteroposterior position. Anesthesia was administered by Papo Koo CRNA. A synchronized direct current of 50 joules biphasic energy was utilized for cardioversion. This was successful on the first attempt. IMPRESSION: SUCCESSFUL DIRECT CURRENT SUPPORTED CARDIOVERSION WITH 50 JOULES OF BIPHASIC ENERGY. JOB NUMBER: [id number] MTDD
== END 2019-05-03 12:53 | disposition home or self-care (01) ==
LOC: SUR 10:05
PROVIDERS: ATTEND Internal Medicine
DX: I48.0 Paroxysmal atrial fibrillation (principal); I25.5 Ischemic cardiomyopathy; Z79.01 Long term (current) use of anticoagulants; I50.9 Heart failure, unspecified; E03.9 Hypothyroidism, unspecified; E78.00 Pure hypercholesterolemia, unspecified; I25.10 Atherosclerotic heart disease of native coronary artery without angina pectoris; H40.9 Unspecified glaucoma; Z95.0 Presence of cardiac pacemaker; Z95.5 Presence of coronary angioplasty implant and graft
CPT/HCPCS: 84132; 92960; 93005; J7030